=== PATIENT | male | born 1945 | race Caucasian/White ===

== ENCOUNTER 2016-03-23 10:42 | Day surgery (SDC) | payer BC, MEDICARE ==
[2016-03-17 11:38] VITALS: BMI 24.3
[~2016-03-23 10:42] MED LIST: LACTATED RINGERS 1,000 ML IV SCH
[2016-03-23 11:26] VITALS: RESP 16; TEMP 97.9
[2016-03-23] MEDS: CYCLOPENTOLATE 1% OPHTH SOLN 2 ML BTL OP ONE ×3 (11:30→11:42)
[2016-03-23] MEDS: FLURBIPROFEN 0.03% OPHTH DROPS 2.5 ML BTL OP ONE ×3 (11:32→11:44)
[2016-03-23] MEDS: PHENYLEPHRINE 10% OPHTH DROPS 5 ML BTL OP ONE ×2 (11:34→11:48)
[2016-03-23] MEDS ORDERED: LIDOCAINE 1% 20 ML VIAL (10MG/ML) FOR IV START INTRADERMA ONE (11:49)
[2016-03-23] MEDS ORDERED: hydrALAZINE HCL 20 MG/ML 1 ML VIAL IVP ONE (11:54)
[2016-03-23] MEDS ORDERED: PROPOFOL 10 MG/ML 20 ML VIAL IV ONE (12:17)
[2016-03-23] MEDS ORDERED: LIDOCAINE 1% INJ 10MG/ML (20 ML MDV) ONE (12:17)
[2016-03-23] MEDS ORDERED: fentaNYL (PF) 50 MCG/ML 2 ML AMP ONE (12:17)
[2016-03-23] MEDS ORDERED: HYALURONATE SODIUM INTRAOCULAR 1 EACH SYRINGE (10MG/ML) INTRAOCULA ONE (12:30)
[2016-03-23] MEDS ORDERED: BALANCED SALT IRRIG SOLN COMB2 15 ML IRRIG.SOLN INTRAOCULA ONE (12:30)
[2016-03-23] MEDS ORDERED: EPINEPHrine (PF) 0.5 ML in BALANCED SALT IRRIG SOLN COMB2 500 ML IRRIGATION ONE (12:31)
--- NOTE | 2016-03-23 12:37 | P.OP ---
Date of Procedure: 03/23/16 Procedure(s) Performed: PREOPERATIVE DIAGNOSIS: Cataract, left eye. POSTOPERATIVE DIAGNOSIS: Cataract, left eye. OPERATION: Phacoemulsification cataract, left eye. DESCRIPTION OF PROCEDURE: The patient was taken to the preoperative holding area. Intravenous Propofol was given so as to bring about adequate sedation. The following mixture was given for local anesthesia: 5 mL of 2% lidocaine, 5 mL of 0.75% Marcaine, and 1 mL of Wydase. Approximately 4 mL was injected in the retrobulbar space of the surgical eye. Additional 1 mL was then directed to the temporal area of the surgical eye. This was performed to allow adequate neurological block of the facial muscles. The patient was revived and then taken into the operative room. The patient was prepped and draped in the usual sterile manner for the operative eye. A lid speculum was put into position. The conjunctiva was resected back from the limbus in the 12 o'clock position. Bleeding was controlled with electrocautery. A #69 blade was then used and a half-thickness scleral incision approximately 1-mm posterior to the limbus was made on bare sclera. This was shelved in the clear cornea using a crescent knife. Next a 15-degree blade was used to make a stab incision at the 3 o' clock position at the corneolimbal interface. Keratome blade was then used and the superior wound was extended into the anterior chamber. Viscoelastic was injected into the anterior chamber and to maintain its form. Next, a cystotome was used and a continuous anterior capsulotomy was made without difficulty. Hydrodissection using a blunt cannula and BSS was performed. Phaco probe was then employed and a groove extending from 12 to 6 o'clock in the lens was created. A Gino wand was used through the stab incision so as to perform a divide and conquer technique. Next an irrigation aspiration probe was utilized and any residual cortex was removed from the eye. Again, viscoelastic was injected into the anterior chamber. An Mehrdad posterior chamber lens implant was placed in the cartridge and injected into the anterior chamber without difficulty. The SinOdotechey hook was utilized to spin the lens into position and this was again performed without any difficulty. The irrigation and aspiration probe was again employed and any residual viscoelastic was removed from the eye. Then BSS was injected into the limbal stab incision and the anterior chamber re-inflated. The conjunctiva was reapproximated using electrocautery. One drop of 0.25% Timoptic was placed over the corneal along with TobraDex ophthalmic ointment. Two sterile patches and a Dejesus eye shield were taped into position. The patient was transported to the recovery room in stable condition. Pathology: none sent Condition: stable Disposition: same day
[2016-03-23 13:06] VITALS: BP 144/76; PULSE 58
[2016-03-23] MEDS ORDERED: BUPIVACAINE (PF) 0.75% 5 ML, LIDOCAINE 4% (PF) 5 ML, HYALURONIDASE, HUMAN RECOMB 150 UNIT MISCELLANE ONE ×3 (23:00)
[2016-03-23] MEDS ORDERED: GENTAMICIN/PREDNISOL AC OPHTH OINT 3.5GM OPHTHALMIC ONE (23:00)
[2016-03-23] MEDS ORDERED: TIMOLOL 0.5% OPHTH SOLN (PF) 0.2 ML DROPERETTE OP ONE (23:00)
== END 2016-03-23 13:29 | disposition home or self-care (01) ==
LOC: OR 10:42
PROVIDERS: ATTEND Ophthalmology
DX: H25.013 Cortical age-related cataract, bilateral (principal); Z88.5 Allergy status to narcotic agent; I25.2 Old myocardial infarction; I10 Essential (primary) hypertension; Z86.73 Personal history of transient ischemic attack (TIA), and cerebral infarction without residual deficits; Z79.82 Long term (current) use of aspirin; Z79.891 Long term (current) use of opiate analgesic; Z79.899 Other long term (current) drug therapy
CPT/HCPCS: 66984; V2632; J2001 ×2; J3470; J0360; J0171; J3010; J2704; 99152; 99153

== ENCOUNTER 2016-05-11 11:11 | Day surgery (SDC) | payer MEDICARE ==
[2016-05-10 09:25] VITALS: BMI 23.0
[~2016-05-11 11:11] MED LIST changes: +LIDOCAINE 1% 20 ML VIAL (10MG/ML) FOR IV START INTRADERMA PRN
[2016-05-11] MEDS ORDERED: LACTATED RINGERS 1,000 ML IV ONE (12:44)
[2016-05-11 12:51] VITALS: RESP 18; TEMP 98
[2016-05-11] MEDS: PHENYLEPHRINE 10% OPHTH DROPS 5 ML BTL OP ONE ×3 (12:52→13:04)
[2016-05-11] MEDS: CYCLOPENTOLATE 1% OPHTH SOLN 2 ML BTL OP ONE ×3 (12:54→13:06)
[2016-05-11] MEDS: FLURBIPROFEN 0.03% OPHTH DROPS 2.5 ML BTL OP ONE ×3 (12:56→13:08)
[2016-05-11] MEDS ORDERED: PROPOFOL 10 MG/ML 20 ML VIAL IV ONE (14:00)
[2016-05-11] MEDS ORDERED: EPINEPHrine (PF) 0.5 ML in BALANCED SALT IRRIG SOLN COMB2 500 ML IRRIGATION ONE (14:03)
[2016-05-11] MEDS ORDERED: BALANCED SALT IRRIG SOLN COMB2 15 ML IRRIG.SOLN IRRIGATION ONE (14:08)
[2016-05-11] MEDS ORDERED: HYALURONATE SODIUM INTRAOCULAR 1 EACH SYRINGE (10MG/ML) INTRAOCULA ONE (14:09)
--- NOTE | 2016-05-11 14:27 | P.OP ---
Date of Procedure: 05/11/16 Procedure(s) Performed: PREOPERATIVE DIAGNOSIS: Cataract, right eye. POSTOPERATIVE DIAGNOSIS: Cataract, right eye. OPERATION: Phacoemulsification cataract, right eye. DESCRIPTION OF PROCEDURE: The patient was taken to the preoperative holding area. Intravenous Propofol was given so as to bring about adequate sedation. The following mixture was given for local anesthesia: 5 mL of 2% lidocaine, 5 mL of 0.75% Marcaine, and 1 mL of Wydase. Approximately 4 mL was injected in the retrobulbar space of the surgical eye. Additional 1 mL was then directed to the temporal area of the surgical eye. This was performed to allow adequate neurological block of the facial muscles. The patient was revived and then taken into the operative room. The patient was prepped and draped in the usual sterile manner for the operative eye. A lid speculum was put into position. The conjunctiva was resected back from the limbus in the 12 o'clock position. Bleeding was controlled with electrocautery. A #69 blade was then used and a half-thickness scleral incision approximately 1-mm posterior to the limbus was made on bare sclera. This was shelved in the clear cornea using a crescent knife. Next a 15-degree blade was used to make a stab incision at the 3 o' clock position at the corneolimbal interface. Keratome blade was then used and the superior wound was extended into the anterior chamber. Viscoelastic was injected into the anterior chamber and to maintain its form. Next, a cystotome was used and a continuous anterior capsulotomy was made without difficulty. Hydrodissection using a blunt cannula and BSS was performed. Phaco probe was then employed and a groove extending from 12 to 6 o'clock in the lens was created. A Gino wand was used through the stab incision so as to perform a divide and conquer technique. Next an irrigation aspiration probe was utilized and any residual cortex was removed from the eye. Again, viscoelastic was injected into the anterior chamber. An Mehrdad posterior chamber lens implant was placed in the cartridge and injected into the anterior chamber without difficulty. The SinGuocool.comey hook was utilized to spin the lens into position and this was again performed without any difficulty. The irrigation and aspiration probe was again employed and any residual viscoelastic was removed from the eye. Then BSS was injected into the limbal stab incision and the anterior chamber re-inflated. The conjunctiva was reapproximated using electrocautery. One drop of 0.25% Timoptic was placed over the corneal along with TobraDex ophthalmic ointment. Two sterile patches and a Dejesus eye shield were taped into position. The patient was transported to the recovery room in stable condition. Pathology: none sent Condition: stable Disposition: same day
[2016-05-11 14:56] VITALS: BP 157/84; PULSE 57
[2016-05-11] MEDS ORDERED: TIMOLOL 0.5% OPHTH SOLN (PF) 0.2 ML DROPERETTE OP ONE (23:00)
[2016-05-11] MEDS ORDERED: BUPIVACAINE (PF) 0.75% 5 ML, LIDOCAINE 4% (PF) 5 ML, HYALURONIDASE, HUMAN RECOMB 150 UNIT MISCELLANE ONE ×3 (23:00)
[2016-05-11] MEDS ORDERED: GENTAMICIN/PREDNISOL AC OPHTH OINT 3.5GM OPHTHALMIC ONE (23:00)
== END 2016-05-11 15:03 | disposition home or self-care (01) ==
LOC: OR 11:11
PROVIDERS: ATTEND Ophthalmology
DX: H26.9 Unspecified cataract (principal); Z86.73 Personal history of transient ischemic attack (TIA), and cerebral infarction without residual deficits; Z87.891 Personal history of nicotine dependence; Z79.82 Long term (current) use of aspirin; Z79.891 Long term (current) use of opiate analgesic; Z88.5 Allergy status to narcotic agent
CPT/HCPCS: 66984; V2632; J2001; J3470; J0171; J2704

== ENCOUNTER → 2016-09-24 | Outpatient (CLI) | payer MEDICARE ==
--- NOTE | 2016-09-24 08:59 | CT ---
EXAMINATION TYPE: CT lumbar spine wo con DATE OF EXAM: 09/24/2016 8:25 AM COMPARISON: NONE HISTORY: Low back pain CT DLP: 595.60 mGycm Automated exposure control for dose reduction was used. Unenhanced CT of the lumbar spine was performed. Bone and soft tissue window settings are submitted as well as coronal and sagittal reconstructions. L1-L2: Normal disc space height. No disc herniation protrusion or central stenosis. No facet joint arthropathy. No evidence for foraminal encroachment. L2-L3: Broad-based disc bulge is seen although intervertebral disc spaces maintained. This creates mi ld bilateral neural foraminal stenosis. No disc herniation protrusion or central stenosis. No facet joint arthropathy. L3-L4: There is a broad-based disc bulge, ligamentum flavum buckling, and facet arthropathy creating moderate spinal canal stenosis an mild bilateral neural foraminal narrowing. L4-L5: There is a right lateral disc herniation superimposed upon a broad-based disc bulge creating m oderate right neural foraminal narrowing and mild left neural foraminal narrowing. Additionally ligam entum flavum hypertrophy and facet arthropathy contribute to mild central canal stenosis at this leve l. Intervertebral disc space narrowing is noted. L5-S1: Broad-based disc bulge is seen as well as intervertebral disc space narrowing without signific ant spinal canal stenosis or neural foraminal narrowing. Punctate 2 mm left lower pole nonobstructing renal calculus is incidentally noted. IMPRESSION: 1. Right lateral disc herniation creating moderate right neural foraminal narrowing, mild left neural foraminal narrowing, and mild central canal stenosis at L4-L5. 2. Broad-based disc bulge, ligamentum flavum hypertrophy, and facet arthropathy at L3-L4 creating mod erate spinal canal stenosis and mild bilateral neural foraminal narrowing. 3. Multilevel degenerative disc disease. 4. Incidentally noted punctate 2 mm nonobstructing left lower pole renal calculus.
== END | disposition home or self-care (01) ==
LOC: RADCTMAIN 08:00
PROVIDERS: ATTEND Physical Medicine & Rehabilitation
DX: M48.06 Spinal stenosis, lumbar region (principal); M99.73 Connective tissue and disc stenosis of intervertebral foramina of lumbar region; M51.26 Other intervertebral disc displacement, lumbar region; M51.36 Other intervertebral disc degeneration, lumbar region; M24.28 Disorder of ligament, vertebrae
CPT/HCPCS: 72131

== ENCOUNTER 2017-05-02 09:32 | Day surgery (SDC) | payer MEDICARE ==
[2017-04-28 13:53] VITALS: BMI 23.7
[~2017-05-02 09:32] MED LIST changes: -LIDOCAINE 1% 20 ML VIAL (10MG/ML) FOR IV START INTRADERMA PRN
[2017-05-02 10:06] VITALS: RESP 16; TEMP 97.1
[2017-05-02] MEDS ORDERED: PROPOFOL 10 MG/ML 20 ML VIAL IV ONE (11:39)
[2017-05-02] MEDS ORDERED: LIDOCAINE 1% INJ 10MG/ML (20 ML MDV) ONE (11:39)
[2017-05-02] MEDS ORDERED: GLYCOPYRROLATE 0.2 MG/ML 2 ML VIAL ONE (11:39)
[2017-05-02 12:16] VITALS: BP 109/65; PULSE 73
--- NOTE | 2017-05-02 12:18 | P.PCN ---
Date of Procedure: 05/02/17 Procedure(s) Performed: Procedure: 1. Esophagogastroduodenoscopy and biopsies. 2. Total colonoscopy. Preoperative diagnosis: Epigastric pain and screening for colon neoplasia. Postoperative diagnosis: 1. Mild antral gastritis. 2. Normal colon. 3. Multiple biopsies obtained from the duodenum, antrum and esophagus. Preparation: HalfLytely prep. Sedation: Was provided by anesthesia. Brief clinical history: The patient is a 71-year-old male who is scheduled for this evaluation because of epigastric pain as well as for screening for colon neoplasia. Procedure: With the patient on his left lateral decubitus position and after informed consent and adequate sedation, I passed the Olympus-GIF 160 video upper endoscope through the cricopharyngeus down the esophagus. The endoscope was then passed into the stomach which was insufflated with air and inspected in detail including the retroflex view in the cardia. There was some minimal mottling and erythema in the antrum but no ulcers or erosions. Pyloric channel, duodenal bulb, post bulbar area and descending duodenum appeared within normal limits. I obtained biopsies from the duodenum, antrum and esophagus then the endoscope was withdrawn and I proceeded with the colonoscopy. Perianal area did not show any fissures or fistulas. There were no masses felt on digital rectal examination. The Olympus CFQ 160L video colonoscope was then inserted in the rectum in the usual fashion and advanced to the cecum. The preparation was less than ideal and there was thick fecal material that would lock the suction channel of the endoscope. Where visualized, the colon appeared healthy with no edema, erythema, friability, ulceration, exudation or spontaneous bleeding. No polyps or tumors were seen or any obvious diverticular disease or other pathology. The patient tolerated the procedure well. The patient tolerated the procedure well. Plan: The patient was reassured. He will follow up with you as planned and I recommended repeat exam in 5 years because of his less than ideal preparation.
== END 2017-05-02 12:42 | disposition home or self-care (01) ==
LOC: ORWHC2ENDO 09:32
DX: Z12.11 Encounter for screening for malignant neoplasm of colon (principal); K29.50 Unspecified chronic gastritis without bleeding; K22.70 Barrett's esophagus without dysplasia; I25.10 Atherosclerotic heart disease of native coronary artery without angina pectoris; I10 Essential (primary) hypertension; E78.5 Hyperlipidemia, unspecified; Z86.73 Personal history of transient ischemic attack (TIA), and cerebral infarction without residual deficits; Z88.5 Allergy status to narcotic agent; I25.2 Old myocardial infarction; Z79.82 Long term (current) use of aspirin; Z79.891 Long term (current) use of opiate analgesic; Z79.899 Other long term (current) drug therapy
CPT/HCPCS: 88305; 43239; J2001; J2704; G0121; 45378

== ENCOUNTER 2017-05-12 00:52 | Emergency (ER) | payer MEDICARE ==
[2017-05-12 01:01] LABS: Glucose,Whole Blood 124 mg/dL (75-99)
--- NOTE | 2017-05-12 01:21 | ED ---
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 The patient was picked up by the police because he was driving the wrong direction on the highway. The patient does not recall a lot of the details of this. He states that the last thing that he recalls was leaving a bowling alley. He states he does not drink, smoke, or do any drugs. He declines doing any of these activities tonight. He denies any physical complaints. States he does not have any recollection of this occurring to them previously. There is no family here at bedside giving further history. The patient denies any headache, fevers , chills, chest pain, shortness of breath, abdominal pain, or any urinary symptoms. - Related Data Home Medications Medication Instructions Recorded Confirmed Aspirin 325 mg PO HS 03/17/16 05/02/17 oxyCODONE-APAP 10-325MG [Percocet 1 tab PO Q6HR PRN 03/17/16 05/02/17 10-325 mg] Buprenorphine [Butrans 15 MCG/HR] 1 each TRANSDERM WE 04/28/17 05/02/17 Lisinopril 40 mg PO QAM 04/28/17 04/28/17 Pravastatin Sodium [Pravachol] 20 mg PO HS 04/28/17 04/28/17 amLODIPine BESYLATE [Norvasc] 5 mg PO QAM 04/28/17 04/28/17 Allergies Allergy/AdvReac Type Severity Reaction Status Date / Time meperidine [From Demerol] Allergy Swelling Verified 05/12/17 01:07 Review of Systems ROS Statement: Those systems with pertinent positive or pertinent negative responses have been documented in the HPI. ROS Other: All systems not noted in ROS Statement are negative. Past Medical History Past Medical History: CVA/TIA, Hyperlipidemia, Hypertension, Myocardial Infarction ([place]) Additional Past Medical History / Comment(s): ANEMIA, STATES CHRONIC NECK/BACK PAIN, stroke years ago-residual droopy left eye Last Myocardial Infarction Date:: 1972 History of Any Multi-Drug Resistant Organisms: None Reported Past Surgical History: Back Surgery, Heart Catheterization, Orthopedic Surgery Additional Past Surgical History / Comment(s): ORIF FOOT, cataract [place] Past Anesthesia/Blood Transfusion Reactions: No Reported Reaction Past Psychological History: No Psychological Hx Reported Smoking Status: Former smoker - Past Family History Sister(s) Family Medical History: Cancer General Exam - General Exam Comments Initial Comments: Constitutional: Awake alert Appears comfortable Head: Normocephalic atraumatic Eyes: no conjunctival injection No scleral icterus EOMI Neck: No JVD Supple Heart: Regular rate rhythm normal S1-S2 no murmurs Lungs: Clear to auscultation bilaterally No wheezing No rales Abdomen: Soft nondistended nontender Extremities: Non edematous DP pulses intact Radial pulses intact Neuro: Alert and oriented to person and place however does not know the year or the president, does have some left-sided facial drooping which is baseline per the patient. 5 out of 5 strength in upper and lower extremities bilaterally, no ataxia with finger-nose and heel to hadley testing, the patient does have episodes of repetitive speech. He also has difficulty remembering people that he just saw a few minutes ago. Psych: Appropriate mood and affect Limitations: no limitations Course Vital Signs 05/12/17 05/12/17 01:02 01:51 Temperature 97 F L Pulse Rate 89 91 Respiratory 16 18 Rate Blood Pressure 196/109 158/85 O2 Sat by Pulse 100 98 Oximetry - Reevaluation(s) Reevaluation #1: 05/12/17 01:20 EKG showing normal sinus rhythm with a rate of 89. No abnormal ST segment changes or T-wave inversions. QTC is 435. Other intervals normal. No ectopy. Medical Decision Making - Medical Decision Making Is a 71-year-old male who presents emergency department for an episode of confusion. The patient had no focal neurologic deficits except for those that were baseline for him. Computed tomography scan of the head was unremarkable. Labwork was obtained that did show a microcytic anemia however no other acute abnormalities. The anemia and likely is chronic and not what has caused his symptoms tonight. The did end up showing up and stated that he is currently being treated for dementia which is a new diagnosis for him. He has been having waxing and waning episodes of confusion similar to these over the last few weeks that she states that she feels that tonight's episode was likely related to his dementia. The patient was able to remember me when I came into the room and thus transient global amnesia is less likely. At this time there is no acute abnormalities that are requiring the patient to stay in the hospital. I advised them to follow up closely with her primary doctor or return for any worsening symptoms. All questions were answered. - Lab Data Result diagrams: 05/12/17 01:00 05/12/17 01:00 Lab Results 05/12/17 05/12/17 05/12/17 Range/Units 00:59 01:00 01:00 WBC 9.6 (3.8-10.6) k/uL RBC 4.08 L (4.30-5.90) m/uL Hgb 9.4 L (13.0-17.5) gm/dL Hct 31.6 L (39.0-53.0) % MCV 77.5 L (80.0-100.0) fL MCH 23.1 L (25.0-35.0) pg MCHC 29.8 L (31.0-37.0) g/dL RDW 15.7 H (11.5-15.5) % Plt Count 276 (150-450) k/uL Neutrophils % 73 % Lymphocytes % 17 % Monocytes % 5 % Eosinophils % 3 % Basophils % 1 % Neutrophils # 7.0 (1.3-7.7) k/uL Lymphocytes # 1.6 (1.0-4.8) k/uL Monocytes # 0.5 (0-1.0) k/uL Eosinophils # 0.3 (0-0.7) k/uL Basophils # 0.1 (0-0.2) k/uL Hypochromasia Marked Microcytosis Slight PT (9.0-12.0) sec INR (<1.2) APTT (22.0-30.0) sec Sodium 143 (137-145) mmol/L Potassium 3.8 (3.5-5.1) mmol/L Chloride 105 (98-107) mmol/L Carbon Dioxide 26 (22-30) mmol/L Anion Gap 12 mmol/L BUN 13 (9-20) mg/dL Creatinine 0.80 (0.66-1.25) mg/dL Est GFR (CKD-EPI)AfAm >90 (>60 ml/min/1.73 sqM) Est GFR (CKD-EPI)NonAf 90 (>60 ml/min/1.73 sqM) Glucose 121 H (74-99) mg/dL POC Glucose (mg/dL) 124 H (75-99) mg/dL POC Glu Police Officer ID Josseline Ulrich Calcium 9.5 (8.4-10.2) mg/dL Magnesium 2.1 (1.6-2.3) mg/dL Total Bilirubin 0.2 (0.2-1.3) mg/dL AST 24 (17-59) U/L ALT 34 (21-72) U/L Alkaline Phosphatase 91 (38-126) U/L CK-MB (CK-2) (0.0-2.4) ng/mL Troponin I (0.000-0.034) ng/mL Total Protein 7.4 (6.3-8.2) g/dL Albumin 4.5 (3.5-5.0) g/dL Urine Color Urine Appearance (Clear) Urine pH (5.0-8.0) Ur Specific [place] (1.001-1.035) Urine Protein (Negative) Urine Glucose (UA) (Negative) Urine Ketones (Negative) Urine Blood (Negative) Urine Nitrite (Negative) Urine Bilirubin (Negative) Urine Urobilinogen (<2.0) mg/dL Ur Leukocyte Esterase (Negative) 05/12/17 05/12/17 05/12/17 Range/Units 01:00 01:00 02:00 WBC (3.8-10.6) k/uL RBC (4.30-5.90) m/uL Hgb (13.0-17.5) gm/dL Hct (39.0-53.0) % MCV (80.0-100.0) fL MCH (25.0-35.0) pg MCHC (31.0-37.0) g/dL RDW (11.5-15.5) % Plt Count (150-450) k/uL Neutrophils % % Lymphocytes % % Monocytes % % Eosinophils % % Basophils % % Neutrophils # (1.3-7.7) k/uL Lymphocytes # (1.0-4.8) k/uL Monocytes # (0-1.0) k/uL Eosinophils # (0-0.7) k/uL Basophils # (0-0.2) k/uL Hypochromasia Microcytosis PT 10.3 (9.0-12.0) sec INR 1.0 (<1.2) APTT 21.2 L (22.0-30.0) sec Sodium (137-145) mmol/L Potassium (3.5-5.1) mmol/L Chloride (98-107) mmol/L Carbon Dioxide (22-30) mmol/L Anion Gap mmol/L BUN (9-20) mg/dL Creatinine (0.66-1.25) mg/dL Est GFR (CKD-EPI)AfAm (>60 ml/min/1.73 sqM) Est GFR (CKD-EPI)NonAf (>60 ml/min/1.73 sqM) Glucose (74-99) mg/dL POC Glucose (mg/dL) (75-99) mg/dL POC Glu Police Officer ID Calcium (8.4-10.2) mg/dL Magnesium (1.6-2.3) mg/dL Total Bilirubin (0.2-1.3) mg/dL AST (17-59) U/L ALT (21-72) U/L Alkaline Phosphatase (38-126) U/L CK-MB (CK-2) 3.1 H* (0.0-2.4) ng/mL Troponin I <0.012 (0.000-0.034) ng/mL Total Protein (6.3-8.2) g/dL Albumin (3.5-5.0) g/dL Urine Color Light Yellow Urine Appearance Clear (Clear) Urine pH 6.5 (5.0-8.0) Ur Specific [place] 1.009 (1.001-1.035) Urine Protein Negative (Negative) Urine Glucose (UA) Negative (Negative) Urine Ketones 1+ H (Negative) Urine Blood Negative (Negative) Urine Nitrite Negative (Negative) Urine Bilirubin Negative (Negative) Urine Urobilinogen <2.0 (<2.0) mg/dL Ur Leukocyte Esterase Negative (Negative) Disposition Clinical Impression: Confusion, Dementia Disposition: HOME SELF-CARE Condition: Stable Instructions: Dementia (ED) Referrals: Terrance Fowler MD [Primary Care Provider] - 1-2 days
[2017-05-12 01:27] LABS: Basophils # (A) 0.1 k/uL (0-0.2); Basophils % (A) 1 %; Eosinophils # (A) 0.3 k/uL (0-0.7); Eosinophils % (A) 3 %; HCT 31.6 % (39.0-53.0); HGB 9.4 gm/dL (13.0-17.5); Hypochromasia Marked; Lymphocytes # (A) 1.6 k/uL (1.0-4.8); Lymphocytes % (A) 17 %; MCH 23.1 pg (25.0-35.0); MCHC 29.8 g/dL (31.0-37.0); MCV 77.5 fL (80.0-100.0); Mean Platelet Volume 7.8; Microcytosis Slight; Monocytes # (A) 0.5 k/uL (0-1.0); Monocytes % (A) 5 %; Neutrophils % (A) 73 %; Platelet Count 276 k/uL (150-450); RBC 4.08 m/uL (4.30-5.90); RDW 15.7 % (11.5-15.5); WBC 9.6 k/uL (3.8-10.6)
--- NOTE | 2017-05-12 01:30 | CT ---
EXAMINATION TYPE: CT brain wo con DATE OF EXAM: 05/12/2017 COMPARISON: NONE HISTORY: No prev. on synapse. pt. presented to ER with confusion. Hx. of previous TIA/CVA CT DLP: 1030.60 mGycm Automated exposure control for dose reduction was used. FINDINGS: There is mild cerebral cortical atrophy. There is no mass effect nor midline shift. There is no sign of intracranial hemorrhage. There is dense metal artifact on the anterior aspect of the left globe. T he calvarium is intact. There is no evidence of a cortical infarct. IMPRESSION: CEREBRAL ATROPHY. NO ACUTE INTRACRANIAL ABNORMALITY.
--- NOTE | 2017-05-12 01:31 | XR ---
EXAMINATION TYPE: XR chest 2V DATE OF EXAM: 05/12/2017 COMPARISON: NONE HISTORY: Confusion TECHNIQUE: Frontal and lateral views of the chest are obtained. FINDINGS: Heart and mediastinum are normal. Lungs are clear of infiltrate. Diaphragm is normal. Bony thorax is intact. There are chest leads. IMPRESSION: No active cardiopulmonary disease.
[2017-05-12 01:36] LABS: Prothrombin Time 10.3 sec (9.0-12.0)
[2017-05-12 01:50] LABS: ALT 34 U/L (21-72); AST 24 U/L (17-59); Albumin 4.5 g/dL (3.5-5.0); Alkaline Phosphatase 91 U/L (38-126); Anion Gap 12 mmol/L; Blood Urea Nitrogen 13 mg/dL (9-20); Calcium 9.5 mg/dL (8.4-10.2); Carbon Dioxide 26 mmol/L (22-30); Chloride 105 mmol/L (98-107); Glucose 121 mg/dL (74-99); Magnesium 2.1 mg/dL (1.6-2.3); Potassium 3.8 mmol/L (3.5-5.1); Sodium 143 mmol/L (137-145); Total Bilirubin 0.2 mg/dL (0.2-1.3); Total Protein 7.4 g/dL (6.3-8.2)
[2017-05-12 01:52] VITALS: RESP 18
[2017-05-12 02:07] LABS: Troponin I <0.012 ng/mL (0.000-0.034)
[2017-05-12 02:12] LABS: Partial Thromboplastin Time 21.2 sec (22.0-30.0)
[2017-05-12 02:15] LABS: Creatine Kinase MB 3.1 ng/mL (0.0-2.4)
[2017-05-12 02:19] LABS: Appearance,Urine Clear (Clear); Bilirubin,Urine Negative (Negative); Blood,Urine Negative (Negative); Color,Urine Light Yellow; Glucose,Urine (UA) Negative (Negative); Ketones,Urine 1+ (Negative); Leukocyte Esterase,Urine Negative (Negative); Nitrite,Urine Negative (Negative); PH, Urine 6.5 (5.0-8.0); Protein,Urine Negative (Negative); Specific Gravity,Urine 1.009 (1.001-1.035); Urobilinogen,Urine <2.0 mg/dL (<2.0)
[2017-05-12 02:30] LABS: Amphetamine Screen,Urine Not Detected (NotDetected); Barbiturate Screen,Urine Not Detected (NotDetected); Benzodiazepines Screen,Urine Not Detected (NotDetected); Cocaine Screen,Urine Not Detected (NotDetected); Methadone Screen, Urine Not Detected (NotDetected); Opiate Screen,Urine Not Detected (NotDetected); Oxycodone Screen, Urine Not Detected (NotDetected); Phencyclidine Screen,Urine Not Detected (NotDetected); Tricyclic Antidepressant,Urine Not Detected (NotDetected); Urn Cannabinoid Scrn Not Detected (NotDetected)
[2017-05-12 02:44] VITALS: BP 141/75; PULSE 92; TEMP 97.5
== END 2017-05-12 02:41 | disposition home or self-care (01) ==
LOC: EC 00:52
DX: F03.90 Unspecified dementia, unspecified severity, without behavioral disturbance, psychotic disturbance, mood disturbance, and anxiety (principal); D50.9 Iron deficiency anemia, unspecified; R29.810 Facial weakness; E78.5 Hyperlipidemia, unspecified; I10 Essential (primary) hypertension; G89.29 Other chronic pain; I25.2 Old myocardial infarction; Z87.891 Personal history of nicotine dependence; Z79.82 Long term (current) use of aspirin; Z79.899 Other long term (current) drug therapy; Z88.8 Allergy status to other drugs, medicaments and biological substances
CPT/HCPCS: 36415; 70450; 71046; 80053; 80306; 81003; 82553; 83735; 84484; 85025; 85610; 85730; 93005; 99285

== ENCOUNTER → 2017-06-18 | Outpatient (CLI) | payer MEDICARE ==
[2017-06-18 09:00] LABS: Anisocytosis Slight; Basophils # (A) 0.1 k/uL (0-0.2); Basophils % (A) 1 %; Eosinophils # (A) 0.5 k/uL (0-0.7); Eosinophils % (A) 6 %; HCT 31.1 % (39.0-53.0); HGB 9.2 gm/dL (13.0-17.5); Hypochromasia Marked; Lymphocytes # (A) 2.2 k/uL (1.0-4.8); Lymphocytes % (A) 27 %; MCH 23.1 pg (25.0-35.0); MCHC 29.6 g/dL (31.0-37.0); MCV 77.9 fL (80.0-100.0); Mean Platelet Volume 7.1; Microcytosis Slight; Monocytes # (A) 0.4 k/uL (0-1.0); Monocytes % (A) 5 %; Neutrophils # (A) 4.8 k/uL (1.3-7.7); Neutrophils % (A) 58 %; Platelet Count 262 k/uL (150-450); RDW 16.1 % (11.5-15.5); WBC 8.2 k/uL (3.8-10.6)
[2017-06-18 09:29] LABS: ALT 25 U/L (21-72); AST 26 U/L (17-59); Alkaline Phosphatase 78 U/L (38-126); Blood Urea Nitrogen 16 mg/dL (9-20); Cholesterol 209 mg/dL (<200); HDL Cholesterol 47 mg/dL (40-60); LDH 501 U/L (313-618); LDL Cholesterol,Calculated 133 mg/dL (0-99); Triglycerides 144 mg/dL (<150)
[2017-06-18 17:30] LABS: Folate, Serum 21.8 ng/mL
== END | disposition home or self-care (01) ==
LOC: LABWHC1 08:20
PROVIDERS: ATTEND Psychiatry & Neurology Neurology
DX: R41.2 Retrograde amnesia (principal)
CPT/HCPCS: 36415; 80061; 82565; 82607; 82746; 83615; 84075; 84443; 84450; 84460; 84520; 85025

== ENCOUNTER → 2017-08-02 | Outpatient (CLI) | payer MEDICARE ==
[2017-07-29 09:26] VITALS: BMI 23.8
[2017-08-02 13:52] VITALS: BP 157/76; PULSE 69; RESP 18
--- NOTE | 2017-08-02 14:14 | P.HPIM ---
History of Present Illness H&P Date: 08/02/17 Chief Complaint: low back and leg pain This is a 71-year-old patient referred by Dr. Fowler for chronic pain in low back with radiation to both legs with numbness/tingling, R > L. Patient has been taking medications from primary care physician including Percocet medications with some relief. Patient denies adverse drug effects from medications. Patient also denies new-onset weakness, bowel/bladder incontinence , or any other signs or symptoms of cauda equina syndrome. There are no signs of acute intoxication, and no indications of medication diversion or overuse. Patient notes that pain worsens significantly with standing, driving, lifting and improves with sitting, rest, lying down, and medication. Patient has used several types of medications for pain, including NSAIDS, OPIOIDS (Percocet), TRAMADOL. Patient HAS had surgery (previous laminectomy). Patient HAS had injections previously performed by Dr. Barfiedl which did not help him. Patient HAS NOT had physical therapy recently. In addition to above, 13-point review of systems is also negative for chest pain , shortness of breath, changes in vision, changes in hearing, new onset weakness , abdominal pain, diarrhea, extreme fatigue, malaise, fever, skin changes, homicidal or suicidal ideation, or bowel or bladder incontinence. 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 Last Myocardial Infarction Date:: 1972 History of Any Multi-Drug Resistant Organisms: None Reported Past Surgical History: Back Surgery, Heart Catheterization, Orthopedic Surgery Additional Past Surgical History / Comment(s): LEFT ORIF FOOT, cataract WARREN, METAL IN BACK Past Anesthesia/Blood Transfusion Reactions: No Reported Reaction Past Psychological History: No Psychological Hx Reported Smoking Status: Former smoker Past Alcohol Use History: Rare Additional Past Alcohol Use History / Comment(s): SMOKED LESS THAN 1/2PPD IN 20' S Past Drug Use History: None Reported - Past Family History Sister(s) Family Medical History: Cancer Medications and Allergies Home Medications Medication Instructions Recorded Confirmed Type Aspirin 325 mg PO HS 03/17/16 08/02/17 History oxyCODONE-APAP 10-325MG [Percocet 1 tab PO Q8H PRN 03/17/16 08/02/17 History 10-325 mg] Lisinopril 40 mg PO QAM 04/28/17 08/02/17 History Pravastatin Sodium [Pravachol] 20 mg PO HS 04/28/17 08/02/17 History amLODIPine BESYLATE [Norvasc] 5 mg PO QAM 04/28/17 08/02/17 History Allergies Allergy/AdvReac Type Severity Reaction Status Date / Time meperidine [From Demerol] Allergy Swelling Verified 08/02/17 13:40 buprenorphine [From Butrans] AdvReac Rash/Hives Verified 08/02/17 13:40 Physical Exam Vitals: Vital Signs Pulse Resp BP 08/02/17 13:41 69 18 157/76 Intake and Output 08/01/17 08/02/17 08/02/17 22:59 06:59 14:59 Other: Weight 80.739 kg Results Comments: Computed tomography scan of lumbar spine demonstrates a right lateral disc herniation creating moderate right neural foraminal narrowing with mild left neural foraminal narrowing and mild central canal stenosis the L4-L5 level. There is a broad-based disc bulge, ligamentum flavum hypertrophy, and facet arthropathy at L3-L4 creating moderate spinal canal stenosis and mild bilateral neural foraminal narrowing. There is also multilevel degenerative disc disease. Assessment and Plan (1) Lumbar postlaminectomy syndrome Current Visit: Yes Status: Chronic Code(s): M96.1 - POSTLAMINECTOMY SYNDROME , NOT ELSEWHERE CLASSIFIED SNOMED Code(s): 459328767 (2) Chronic pain syndrome Current Visit: Yes Status: Chronic Code(s): G89.4 - CHRONIC PAIN SYNDROME SNOMED Code(s): 019871360 (3) Lumbar disc herniation Current Visit: Yes Status: Acute Code(s): M51.26 - OTHER INTERVERTEBRAL DISC DISPLACEMENT, LUMBAR REGION SNOMED Code(s): 041967573 (4) Lumbar spinal stenosis Current Visit: Yes Status: Acute Code(s): M48.061 - SPINAL STENOSIS, LUMBAR REGION WITHOUT NEUROGENIC LOIVIA SNOMED Code(s): 11171319 Plan: 1. Explanation: Opioid and psychological risk scores were reviewed. Diagnoses , prognoses, and multiple treatment options including but not limited to physical therapy, interventional therapies, adjuvant medical therapies, narcotic medication therapies, and surgery were discussed with the patient and all questions were answered to the patient's satisfaction. 2. Opioid agreement: no opioids prescribed today 3. Counseling: The patient was counseled extensively on SMOKING CESSATION, BODY MASS INDEX, EXERCISE. Specifically, the patient was instructed regarding the importance of smoking cessation, weight control, and exercise in the context of both chronic pain and overall health. 4. Procedures: caudal BENSON 5. Consultations: none 6. Investigations: none 7. Medications: none prescribed 8. Morphine equivalents per day prescribed: zero 9. Disposition: f/u for procedure as scheduled PQRS measures: 1-Patient's medications are documented in the chart. 2-Tobacco use is positive, counseling given 3-Patient has not had a pneumococcal vaccine. 4-Advanced care planning discussed, patient unable to give. 5-Opioid contract NOT signed with the patient. 6-Pain positive, follow-up visit or procedure scheduled 7-Patient's blood pressure measured and documented, and patient will follow up with the primary care due to hypertension. 8-Patient's weight was measured, and body mass index ABOVE the normal limits, and counseling was done. Patient instructed to follow up with PCP. 9-Patient WAS NOT identified as an unhealthy alcohol user. Time with Patient: Greater than 30
== END | disposition home or self-care (01) ==
LOC: PNWHC3 13:32
PROVIDERS: ATTEND Anesthesiology
DX: G89.4 Chronic pain syndrome (principal); M48.061 Spinal stenosis, lumbar region without neurogenic claudication; M51.26 Other intervertebral disc displacement, lumbar region; M96.1 Postlaminectomy syndrome, not elsewhere classified; E78.5 Hyperlipidemia, unspecified; I10 Essential (primary) hypertension; Z72.0 Tobacco use; Z88.5 Allergy status to narcotic agent; Z88.8 Allergy status to other drugs, medicaments and biological substances; Z79.82 Long term (current) use of aspirin; Z79.891 Long term (current) use of opiate analgesic; Z79.899 Other long term (current) drug therapy
CPT/HCPCS: 99211

== ENCOUNTER 2017-08-22 07:55 | Day surgery (SDC) | payer MEDICARE ==
[2017-08-17 10:53] VITALS: BMI 24.7
[2017-08-22] MEDS ORDERED: LACTATED RINGERS 1,000 ML IV ONE ×2 (09:27→10:18)
[2017-08-22 09:41] VITALS: TEMP 98.1
[2017-08-22] MEDS ORDERED: LIDOCAINE 1% 20 ML VIAL (10MG/ML) FOR IV START INTRADERMA ONE (09:45)
--- NOTE | 2017-08-22 10:15 | P.PCN ---
Date of Procedure: 08/22/17 Procedure(s) Performed: PREOPERATIVE DIAGNOSIS:1- Lumbar post laminectomy syndrome. 2-lumbar spinal stenosis POSTOPERATIVE DIAGNOSIS:1- Lumbar post laminectomy syndrome. 2-lumbar spinal stenosis PROCEDURE: 1. Caudal epidural steroid injection under fluoroscopic guidance. 2. Caudal epidurogra ANESTHESIA: Local with 1% lidocaine; 5ml for subcutaneous infiltrations and IV versed 1 mg ,and fentanyl 50 mcg EBL: None. PROCEDURE INDICATION: The patient with neuropathic pain radiating distally returns for caudal epidural steroid injection. PROCEDURE DESCRIPTION: The patient was seen and identified in the preoperative area. Risks, benefits, complications, and alternatives were discussed with the patient. The patient agreed to proceed with the procedure and signed the consent. IV was started, and vital signs were stable. Patient was taken to the OR and time out was completed. The patient was placed in the prone position on procedure table and a pillow was placed under the abdomen to reduce lumbar lordosis. The lumbosacral area was prepped and draped in the usual sterile fashion. Critical pause was taken. Vital signs were closely monitored during the procedure. Using lateral fluoroscopy the anterior-posterior plates of the sacrum were identified and the skin and deeper tissues corresponding into sacrococcygeal ligament were anesthetized using approximately 3 mL of 1% lidocaine. Then under fluoroscopy, a 3-1/2-inch 20-gauge Tuohy epidural needle was guided through the sacrococcygeal ligament, and into the epidural space. After negative aspiration , a 2 mL of omnipaque-180 contrast dye was injected with excellent epidurogram. Again after negative aspiration for CSF, blood, and with no paresthesias , Depo-Medrol 40 mg, 2ml of 1% preservative free Lidocaine with 6 ml of preservative free normal saline(total of 9 ml)solution was injected with washout of epidurogram. Needle was withdrawn intact. Skin was cleansed, and bandage was applied. COMPLICATIONS: None DISPOSITION / PLANS: The patient was placed in a supine position and transferred to the recovery area in a stable condition for observation and was discharged from the recovery room after meeting discharge criteria. Home discharge instructions given to the patient by the staff. The patient was reexamined prior to discharge. The patient will schedule a follow up in the clinic in 2-4 weeks.
[2017-08-22 10:25] VITALS: RESP 18
[2017-08-22 10:46] VITALS: BP 163/80; PULSE 68
[2017-08-22] MEDS ORDERED: LACTATED RINGERS 1,000 ML IV SCH (11:30)
--- NOTE | 2017-08-22 11:39 | FL ---
EXAMINATION TYPE: FL guided pain mgmt statistic DATE OF EXAM: 08/22/2017 FLUOROSCOPY Fluoroscopy time of 3 seconds was used during caudal epidural injection. 2 image/s document/s the pr virgilio.
== END 2017-08-22 11:05 | disposition home or self-care (01) ==
LOC: ORPAIN 07:55
PROVIDERS: ATTEND Specialist
DX: G89.4 Chronic pain syndrome (principal); M96.1 Postlaminectomy syndrome, not elsewhere classified; M51.16 Intervertebral disc disorders with radiculopathy, lumbar region; M48.061 Spinal stenosis, lumbar region without neurogenic claudication; E78.5 Hyperlipidemia, unspecified; I10 Essential (primary) hypertension; I25.2 Old myocardial infarction; Z88.5 Allergy status to narcotic agent; Z79.82 Long term (current) use of aspirin; Z79.899 Other long term (current) drug therapy; Z87.891 Personal history of nicotine dependence; Z86.73 Personal history of transient ischemic attack (TIA), and cerebral infarction without residual deficits; Z80.9 Family history of malignant neoplasm, unspecified
CPT/HCPCS: 62323; J2250; J1030; J3010; Q9966

== ENCOUNTER 2017-09-12 06:34 | Day surgery (SDC) | payer MEDICARE ==
[2017-09-07 09:21] VITALS: BMI 23.4
[2017-09-12] MEDS ORDERED: LACTATED RINGERS 1,000 ML IV ONE (07:22)
[2017-09-12 07:38] VITALS: RESP 18; TEMP 97.7
[2017-09-12] MEDS ORDERED: LIDOCAINE 1% 20 ML VIAL (10MG/ML) FOR IV START INTRADERMA ONE (07:39)
--- NOTE | 2017-09-12 08:26 | P.PCN ---
Date of Procedure: 09/12/17 Surgeon: Facundo Busby Pathology: none sent Condition: stable Disposition: PACU Description of Procedure: PREOPERATIVE DIAGNOSIS:1- Lumbar post laminectomy syndrome. 2-lumbar spinal stenosis POSTOPERATIVE DIAGNOSIS:1- Lumbar post laminectomy syndrome. 2-lumbar spinal stenosis PROCEDURE: 1. Caudal epidural steroid injection under fluoroscopic guidance. 2. Caudal epidurogra ANESTHESIA: Local with 1% lidocaine; 5ml for subcutaneous infiltrations and IV versed 1 mg ,and fentanyl 50 mcg EBL: None. PROCEDURE INDICATION: The patient with neuropathic pain radiating distally returns for caudal epidural steroid injection. PROCEDURE DESCRIPTION: The patient was seen and identified in the preoperative area. Risks, benefits, complications, and alternatives were discussed with the patient. The patient agreed to proceed with the procedure and signed the consent. IV was started, and vital signs were stable. Patient was taken to the OR and time out was completed. The patient was placed in the prone position on procedure table and a pillow was placed under the abdomen to reduce lumbar lordosis. The lumbosacral area was prepped and draped in the usual sterile fashion. Critical pause was taken. Vital signs were closely monitored during the procedure. Using lateral fluoroscopy the anterior-posterior plates of the sacrum were identified and the skin and deeper tissues corresponding into sacrococcygeal ligament were anesthetized using approximately 3 mL of 1% lidocaine. Then under fluoroscopy, a 3-1/2-inch 20-gauge Tuohy epidural needle was guided through the sacrococcygeal ligament, and into the epidural space. After negative aspiration , a 2 mL of omnipaque-180 contrast dye was injected with excellent epidurogram. Again after negative aspiration for CSF, blood, and with no paresthesias , Kenalog 40 mg, 2ml of preservative free Ropivacaine 0.5% with 7 ml of preservative free normal saline(total of 10 ml)solution was injected with washout of epidurogram. Needle was withdrawn intact. Skin was cleansed, and bandage was applied. COMPLICATIONS: None DISPOSITION / PLANS: The patient was placed in a supine position and transferred to the recovery area in a stable condition for observation and was discharged from the recovery room after meeting discharge criteria. Home discharge instructions given to the patient by the staff. The patient was reexamined prior to discharge. The patient will schedule a follow up in the clinic in 2-4 weeks.
[2017-09-12] MEDS ORDERED: IV FLUID CONTINUATION 1,000 ML IV ONE (08:34)
[2017-09-12 08:56] VITALS: BP 124/73; PULSE 67
--- NOTE | 2017-09-12 11:42 | FL ---
EXAMINATION TYPE: FL guided pain mgmt statistic DATE OF EXAM: 09/12/2017 FLUOROSCOPY Fluoroscopy time of 3 seconds was used during caudal epidural steroid injection. 2 image/s document/ s the procedure.
== END 2017-09-12 09:16 | disposition home or self-care (01) ==
LOC: ORPAIN 06:34
PROVIDERS: ATTEND Anesthesiology
DX: M96.1 Postlaminectomy syndrome, not elsewhere classified (principal); M48.061 Spinal stenosis, lumbar region without neurogenic claudication; G57.90 Unspecified mononeuropathy of unspecified lower limb; I25.10 Atherosclerotic heart disease of native coronary artery without angina pectoris; Z88.5 Allergy status to narcotic agent
CPT/HCPCS: 62323; J2250; J3301; J3010; Q9966

== ENCOUNTER → 2017-10-17 | Outpatient (CLI) | payer MEDICARE ==
--- NOTE | 2017-10-17 08:32 | CT ---
EXAMINATION TYPE: CT cervical spine wo con DATE OF EXAM: 10/17/2017 COMPARISON: None HISTORY: 71-year-old male Cervical spondylosis, increasing neck pain TECHNIQUE: Contiguous axial scanning of the cervical spine without IV contrast. Coronal and sagittal reconstructions performed. CT DLP: 387.6 mGycm Automated exposure control for dose reduction was used. FINDINGS: No craniocervical junction abnormality, predental space widening, or prevertebral soft tissue swellin g. Mild to moderate degenerative disc disease especially in the mid to lower cervical spine with mild di sc height loss and disc osteophyte complex formation especially towards the right at C4-C5 and C5-C6. There is slight levoconvex curvature of the cervical spine the alignment is maintained. No acute frac ture of the cervical spine. There is corresponding hypertrophic facet arthropathy in the lower cervical spine and uncovertebral j oint arthropathy, right greater than left. Assessment of the spinal canal from C5-C6 and below is limited due to artifact from the patient's hamlet ulders. At C2-C3, no significant spinal canal and neural foraminal stenosis. At C3-C4, there is some lobulated disc osteophyte complex formation with right greater than left unco vertebral joint degenerative change. Changes cause mild right neuroforaminal stenosis without signifi cant spinal canal stenosis. At C4-C5, bilateral uncovertebral joint and facet arthropathy with moderate to severe bilateral neuro foraminal stenosis. No significant spinal canal stenosis. At C5-C6, bilateral uncovertebral joint arthropathy contribute to moderate to severe bilateral neural foraminal stenosis. No significant spinal canal stenosis. At C6/C7, facet and uncovertebral joint degenerative change contributes to moderate left neuroforamin al stenosis. Assessment of the spinal canal is limited due to artifacts. At C7-T1, left greater than right hypertrophic facet arthropathy without significant neural foraminal stenosis. Assessment of the spinal canal is limited due to artifacts. Biapical pleural-parenchymal scarring is noted. IMPRESSION: 1. MILD TO MODERATE DEGENERATIVE DISC DISEASE MID TO LOWER CERVICAL SPINE WITH HYPERTROPHIC UNCOVERTE BRAL JOINT AND FACET ARTHROPATHY. 2. CHANGES CONTRIBUTE TO MODERATE TO SEVERE BILATERAL NEUROFORAMINAL STENOSIS AT C4-C5 AND C5-C6 AND MODERATE ON THE LEFT AT C6-C7.
== END | disposition home or self-care (01) ==
LOC: RADCTMAIN 07:32
PROVIDERS: ATTEND Specialist
DX: M99.71 Connective tissue and disc stenosis of intervertebral foramina of cervical region (principal); M50.321 Other cervical disc degeneration at C4-C5 level; M46.92 Unspecified inflammatory spondylopathy, cervical region
CPT/HCPCS: 72125

== ENCOUNTER → 2017-11-09 | Outpatient (CLI) | payer MEDICARE ==
[2017-11-09 11:57] VITALS: BP 137/83; PULSE 72; RESP 18
--- NOTE | 2017-11-09 12:50 | P.PAINPG ---
Subjective Progress Note Date: 11/09/17 This is a follow-up visit for this 72 years old male with history of chronic low back pain and neck pain, last visit we ordered a computed tomography scan of the cervical spine and patient here today for follow-up visit to discuss the results of the computed tomography scan of the cervical spine, it showed that patient had C3 4 foraminal stenosis, and multilevel degenerative disc disease and also cervical facet arthropathy, patient continued to have severe neck pain , he denies any motor or sensory deficit, he continued to use Lyrica 75 mg twice a day and Percocet 10/325 and he is getting prescription refills from his primary care, he denies any side effect of the medication Objective - Vital Signs Vital signs: Vital Signs Temp Pulse 72 11/09/17 11:53 Resp 18 11/09/17 11:53 BP 137/83 11/09/17 11:53 Pulse Ox Intake & Output 11/08/17 11/09/17 11/09/17 18:59 06:59 18:59 Weight 73.936 kg - Exam Physical Examinations : 1-Constitutiona : Cooperative , not in acute distress . 2-HEENT : nech ; supple , no Lymphadenopathy , normal thyroid size . eyes : no ptosis , no icterus , no photophobia . ENT : normal of hearing , normal oropharynx , no Thrush . 3- Respiratory : Chest clear to auscultations Bilaterally , no wheezing , no Rhonchi . 4- Cardiovascular : regular rate and rhythem , S1 , S2 , no S3 , no S4. 5- Gastrointestinal : abdomen soft no tenderness , bowel sounds , no organomegally . 6- Genitourinary : Defferred . 7- neurologic : Cranial nerve II to XII intact , no focal neurological deffecit . 8-psychatric : alert , oriented X 3 , appropriate affect , intact judgment and insight . 9-Lymphatic : no Lymphadenopathy . 10- musculoskeltal : Cervical Spine motor stregnth in the deltoid and biceps, normal right side , normal Left side motor stregnth biceps and the wrist extensors normal right side ,normal left side . motor stregnth in the triceps muscle . normal Right side , normal Left side deep tendon reflexes normal at the biceps , normal at Brachioradialis , normal at triceps. positive cervical facet loading test . 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 secondary to cervical spondylosis with cervical facet arthropathy without myelopathy, and cervical foraminal stenosis he will be scheduled to have diagnostic medial branch block cervical area C4-5/C5 6/C6 7 She had a good result he will be scheduled for radiofrequency ablation, patient should continue his current medication is given prescription refills from his primary care Time with Patient: Less than 30 PQRS Measure Charge Sheet Measure #130: Documentation of Current Meds in Medical Chart: Patient's medications documented in chart Measure #226: Tobacco Use: Screen & Cessation Intervention: Pt not a tobacco user Measure #111: Pneumonia Vaccination: Pneumococcal vaccine NOT administered or previously given Measure #47: Advance Care Plan: Advance care planning discussed & documented, pt chose/unable to give Measure #412: Opioid Treatment Agreement: No documentation of signed opioid treatment agreement Measure #408: Opioid Therapy Follow-up Evaluation: Patient had NO f/u eval minimum every 3 months during opioid therapy Measure #317: Preventitive Care & Scrn High Bld Press & F/U: Normal blood pressure, f/u not required Measure #128: Body Mass Index (BMI) Screening & Follow-up: BMI documented within normal parameters Measure #131: Pain Assessment & Follow-up: Pain positive & plan documented, Follow-up scheduled Measure #431: Unhealthy Alcohol Use Preventative Care & Scrn: Patient not identified as an unhealthy alcohol user PQRS Narrative: Smoking Status Never smoker Do You Want the Pneumonia No Vaccine AT THIS TIME? Blood Pressure 137/83 Pain Intensity [Neck] 9 Scale Used Numeric (1 - 10) Hx Alcohol Use (MH) No Home Medications: Ambulatory Orders Aspirin 325 mg PO HS 03/17/16 oxyCODONE-APAP 10-325MG [Percocet 10-325 mg] 1 tab PO Q8H PRN 03/17/16 Lisinopril 40 mg PO QAM 04/28/17 Pravastatin Sodium [Pravachol] 20 mg PO HS 04/28/17 amLODIPine BESYLATE [Norvasc] 5 mg PO QAM 04/28/17 Multivitamins, Thera [Multivitamin (formulary)] 1 tab PO DAILY 08/17/17 Ferrous Sulfate [Feosol] 325 mg PO TID 09/07/17 Isosorbide Mononitrate [Isosorbide Mononitrate ER] 30 mg PO QAM 09/07/17 Memantine HCl [Namenda] 1 tab PO BID 10/10/17 Pregabalin [Lyrica] 75 mg PO BID 11/09/17 Controlled Substance Measures - Controlled Substance Measures Is patient prescribed a controlled substance at discharge?: No When asked, does pt state using other controlled substances?: No If prescribed controlled substance>3 days was MAPS reviewed?: No If Rx opioid, was Start Talking consent form obtained?: No If opioid is for acute pain is fill amount 7 days or less?: No Was information provided regarding opioid addiction?: No
== END | disposition home or self-care (01) ==
LOC: PNWHC3 11:17
PROVIDERS: ATTEND Specialist
DX: G89.29 Other chronic pain (principal); M54.5 Low back pain; M99.71 Connective tissue and disc stenosis of intervertebral foramina of cervical region; M50.30 Other cervical disc degeneration, unspecified cervical region; M47.812 Spondylosis without myelopathy or radiculopathy, cervical region; M46.82 Other specified inflammatory spondylopathies, cervical region; Z79.891 Long term (current) use of opiate analgesic
CPT/HCPCS: 99211

== ENCOUNTER 2017-11-14 06:06 | Day surgery (SDC) | payer MEDICARE ==
[2017-11-10 10:43] VITALS: BMI 22.1
[2017-11-14 06:32] VITALS: RESP 18; TEMP 97.9
[2017-11-14] MEDS ORDERED: LACTATED RINGERS 1,000 ML IV ONE (06:33)
[2017-11-14] MEDS ORDERED: LIDOCAINE 1% 20 ML VIAL (10MG/ML) FOR IV START INTRADERMA ONE (06:33)
--- NOTE | 2017-11-14 08:10 | P.PCN ---
Date of Procedure: 11/14/17 Preoperative Diagnosis: Cervical spondylosis without myelopathy Postoperative Diagnosis: Same as above Procedure(s) Performed: Left cervical medial branch block under fluoroscopic guidance for the medial branches C3 4, C5, C6, and C7 Anesthesia: other (Local with IV conscious sedation with 2 mg of Versed only) Surgeon: Facundo Busby Pathology: none sent Condition: stable Disposition: PACU Description of Procedure: The patient was seen in the preop holding area consent was obtained. He has pain on the left side of his neck with radiation to the upper arm. The patient was brought into the procedure room and placed in the supine position. Skin was prepped with ChloraPrep and draped in a sterile manner. Lidocaine 1% was used to numb the skin up at the target points that were chosen as follows: For the C4, C5, C6 levels the target points were at the center of the trapezoid shaped cervical articular pillars of C4, C5, and C6 vertebra. After the C7 level in the target point was at the superior aspect of the superior articular process of C7. I used 25-gauge 3-1/2 inch Quincke spinal needles for this procedure and after contacting bone at the target points mentioned above I injected 0.5 ML of a solution made up of 3 MLS of ropivacaine 0.5% +10 mg of Decadron. Patient tolerated procedure well.
[2017-11-14] MEDS ORDERED: IV FLUID CONTINUATION 750 ML IV ONE (08:14)
--- NOTE | 2017-11-14 08:22 | FL ---
EXAMINATION TYPE: FL guided pain mgmt statistic DATE OF EXAM: 11/14/2017 CLINICAL HISTORY: Neck pain. TECHNIQUE: Fluoroscopy. COMPARISON: CT cervical spine October 17, 2017. FINDINGS: Fluoroscopic guidance was provided during pain relief procedure performed by Dr. Busby. A total of 8 seconds of fluoroscopic time was utilized during the procedure and single spot fluorosc opic image is acquired. Single image acquired shows needle localization at C4-C5 level posterior juan ments. IMPRESSION: As Above.
[2017-11-14 08:40] VITALS: BP 156/90; PULSE 76
== END 2017-11-14 08:44 | disposition home or self-care (01) ==
LOC: ORPAIN 06:06
PROVIDERS: ATTEND Anesthesiology
DX: G89.29 Other chronic pain (principal); M47.812 Spondylosis without myelopathy or radiculopathy, cervical region; M50.30 Other cervical disc degeneration, unspecified cervical region; M48.02 Spinal stenosis, cervical region; Z79.891 Long term (current) use of opiate analgesic; Z79.899 Other long term (current) drug therapy
CPT/HCPCS: 64490; 64491; 64492; J2250; J1100; 99152

== ENCOUNTER 2017-11-28 06:19 | Day surgery (SDC) | payer MEDICARE ==
[2017-11-23 10:44] VITALS: BMI 22.8
[2017-11-28] MEDS ORDERED: LIDOCAINE 1% 20 ML VIAL (10MG/ML) FOR IV START INTRADERMA ONE (07:20)
[2017-11-28 07:27] VITALS: RESP 16; TEMP 97.9
--- NOTE | 2017-11-28 07:55 | P.PCN ---
Date of Procedure: 11/28/17 Pathology: none sent Condition: stable Disposition: PACU Description of Procedure: Preoperative Diagnosis: Cervical spondylosis without myelopathy Postoperative Diagnosis: Same as above Procedure(s) Performed: Left cervical medial branch block under fluoroscopic guidance for the medial branches C 4, C5, C6, and C7 Anesthesia: other (Local with IV conscious sedation with 2 mg of Versed only) Surgeon: Facundo Busby Pathology: none sent Condition: stable Disposition: PACU Description of Procedure: The patient was seen in the preop holding area consent was obtained. He has pain on the left side of his neck with radiation to the upper arm. The patient had more than 50% of pain relief for 2 days after the first diagnostic injection. The patient was brought into the procedure room and placed in the supine position. Skin was prepped with ChloraPrep and draped in a sterile manner. Lidocaine 1% was used to numb the skin up at the target points that were chosen as follows: For the C4, C5, C6 levels the target points were at the center of the trapezoid shaped cervical articular pillars of C4, C5, and C6 vertebra. After the C7 level in the target point was at the superior aspect of the superior articular process of C7. I used 25-gauge 3-1/2 inch Quincke spinal needles for this procedure and after contacting bone at the target points mentioned above I injected 0.5 ML of a solution made up of 3 MLS of ropivacaine 0.5% +10 mg of Decadron. Patient tolerated procedure well.
[2017-11-28] MEDS ORDERED: IV FLUID CONTINUATION 1,000 ML IV ONE ×2 (08:03)
--- NOTE | 2017-11-28 08:17 | FL ---
EXAMINATION TYPE: FL guided pain mgmt statistic DATE OF EXAM: 11/28/2017 COMPARISON: NONE HISTORY: Back pain. TECHNIQUE: Fluoroscopy. FINDINGS/IMPRESSION: Fluoroscopic guidance was provided during procedure performed by Dr. Geller a total of seconds of fluoroscopic time was utilized during the procedure and 3 spot images was acquire d demonstrating localization of the lumbar spine.
[2017-11-28 08:33] VITALS: BP 149/86; PULSE 84
== END 2017-11-28 08:47 | disposition home or self-care (01) ==
LOC: ORPAIN 06:19
PROVIDERS: ATTEND Anesthesiology
DX: M47.812 Spondylosis without myelopathy or radiculopathy, cervical region (principal); Z88.5 Allergy status to narcotic agent
CPT/HCPCS: 64490; 64491; 64492; J2250; J1100; G0463; 99152; 99211

== ENCOUNTER → 2017-12-21 | Outpatient (CLI) | payer MEDICARE ==
--- NOTE | 2017-12-21 12:23 | P.PN ---
Subjective Progress Note Date: 12/21/17 Principal diagnosis: Cervical spondylosis without myelopathy This is a 71-year-old gentleman with history of neck pain due to cervical spondylosis without myelopathy. The patient had very good results after the last left cervical medial branch block for levels C4, C5, C6, and C7. He denies any weakness in the upper extremities or any bowel or bladder dysfunction. Objective - Vital Signs Vital signs: Vital Signs Temp Pulse 95 12/21/17 11:55 Resp 18 12/21/17 11:55 BP 130/80 12/21/17 11:55 Pulse Ox 97 12/21/17 11:55 Intake & Output 12/20/17 12/21/17 12/21/17 18:59 06:59 18:59 Weight 79.379 kg - Constitutional General appearance: Present: average body habitus, cooperative - EENT Eyes: Present: PERRLA - Respiratory Respiratory: bilateral: CTA - Cardiovascular Rhythm: regular - Neurologic Neurologic: Present: CNII-XII intact - Musculoskeletal Musculoskeletal Comment(s): He has mild tenderness in the left side of his cervical spine in the paravertebral musculature. - Psychiatric Psychiatric: Present: A&O x's 3, appropriate affect, intact judgment & insight Assessment and Plan Plan: We will plan on doing left cervical medial branch RFA for levels C4, C5, C6, and C7 under fluoroscopic guidance. The procedure was explained to the patient and his and their questions were answered to their satisfaction.
[2017-12-21 13:12] VITALS: BP 130/80; PULSE 95; RESP 18
== END | disposition home or self-care (01) ==
LOC: PNWHC3 11:30
PROVIDERS: ATTEND Anesthesiology
DX: M47.812 Spondylosis without myelopathy or radiculopathy, cervical region (principal)
CPT/HCPCS: 99211

== ENCOUNTER → 2018-02-01 | Outpatient (CLI) | payer MEDICARE ==
[2018-02-01 12:40] VITALS: BP 166/93; PULSE 80; RESP 16
--- NOTE | 2018-02-01 12:57 | P.PAINPG ---
Subjective Progress Note Date: 02/01/18 Principal diagnosis: Myofascial pain syndrome This pleasant 72-year-old man with a history of neck pain who has recently undergone cervical radio frequency ablation. He does continue to complain of pain in his neck however this spot now is lower in his neck. He is quite busy with his primary care physician to discuss medication management. He denies any new cervical radicular complaints. He denies any fevers or chills. Objective - Vital Signs Vital signs: Vital Signs Temp Pulse 80 02/01/18 12:31 Resp 16 02/01/18 12:31 BP 166/93 02/01/18 12:31 Pulse Ox 98 02/01/18 12:31 Intake & Output 01/31/18 02/01/18 02/01/18 18:59 06:59 18:59 Weight 79.379 kg - Exam General: The patient is alert and oriented. Patient is not sedated Patient answers all question appropriately. Cardiac: Heart is regular in rate and rhythm Respiratory: Clear to auscultation. No audible wheezes. Abdomen: Soft nontender nondistended. Musculoskeletal: Strength is normal bilaterally. Sensation is normal bilaterally. Straight leg raise is negative bilaterally. He is tender to palpation over his rhomboid muscles and trapezius muscles bilaterally. Neurological: Reflexes are preserved and symmetric bilaterally. Assessment and Plan (1) Myofascial pain syndrome Current Visit: Yes Status: Acute Code(s): M79.18 - MYALGIA, OTHER SITE SNOMED Code(s): 747354315 Plan: Plan of Care 1. Medications: Patient will continue to get his medications through his primary care physician 2. Interventions: We will schedule him for trigger point injections in the lateral rhomboids and bilateral trapezius muscles 3. Referrals: None 4. Testing: None 5. Follow-up: Trigger point injections PQRS Measure Charge Sheet Measure #130: Documentation of Current Meds in Medical Chart: Patient not eligible for medications to be documented Measure #226: Tobacco Use: Screen & Cessation Intervention: Pt not a tobacco user Measure #111: Pneumonia Vaccination: Pneumococcal vaccine NOT administered or previously given Measure #47: Advance Care Plan: Advance care planning discussed & documented, pt chose/unable to give Measure #412: Opioid Treatment Agreement: No documentation of signed opioid treatment agreement Measure #408: Opioid Therapy Follow-up Evaluation: Patient had NO f/u eval minimum every 3 months during opioid therapy Measure #317: Preventitive Care & Scrn High Bld Press & F/U: Normal blood pressure, f/u not required Measure #128: Body Mass Index (BMI) Screening & Follow-up: BMI documented within normal parameters Measure #131: Pain Assessment & Follow-up: Pain positive & plan documented Measure #431: Unhealthy Alcohol Use Preventative Care & Scrn: Patient not identified as an unhealthy alcohol user PQRS Narrative: Smoking Status Former smoker Do You Want the Pneumonia No Vaccine AT THIS TIME? Blood Pressure 166/93 Pain Intensity [Bilateral 9 Posterior Neck] Scale Used Numeric (1 - 10) Hx Alcohol Use (MH) No Home Medications: Ambulatory Orders Aspirin 325 mg PO HS 03/17/16 oxyCODONE-APAP 10-325MG [Percocet 10-325 mg] 1 tab PO Q8H PRN 03/17/16 Lisinopril 40 mg PO QAM 04/28/17 Pravastatin Sodium [Pravachol] 20 mg PO HS 04/28/17 amLODIPine BESYLATE [Norvasc] 5 mg PO QAM 04/28/17 Multivitamins, Thera [Multivitamin (formulary)] 1 tab PO DAILY 08/17/17 Ferrous Sulfate [Feosol] 325 mg PO TID 09/07/17 Isosorbide Mononitrate [Isosorbide Mononitrate ER] 30 mg PO QAM 09/07/17 Memantine HCl [Namenda] 1 tab PO BID 10/10/17 Lidocaine 5% Patch [Lidoderm] 1 patch TOPICAL DAILY 02/01/18 Controlled Substance Measures - Controlled Substance Measures Is patient prescribed a controlled substance at discharge?: No
== END ==
LOC: PNWHC3 11:10
PROVIDERS: ATTEND Pain Medicine Pain Medicine
DX: M79.18 Myalgia, other site (principal); Z79.82 Long term (current) use of aspirin; Z79.899 Other long term (current) drug therapy; Z79.891 Long term (current) use of opiate analgesic
CPT/HCPCS: 99211

== ENCOUNTER 2018-02-27 07:15 | Day surgery (SDC) | payer MEDICARE ==
[2018-02-23 10:29] VITALS: BMI 23.8
[2018-02-27 08:00] VITALS: RESP 16; TEMP 97.7
[2018-02-27] MEDS ORDERED: LACTATED RINGERS 1,000 ML IV ONE (08:11)
[2018-02-27] MEDS ORDERED: LIDOCAINE 1% 20 ML VIAL (10MG/ML) FOR IV START INTRADERMA ONE (08:11)
[2018-02-27] MEDS ORDERED: IV FLUID CONTINUATION 1,000 ML IV ONE (08:44)
[2018-02-27 08:57] VITALS: BP 151/88; PULSE 75
[2018-02-27] MEDS ORDERED: SODIUM CHLORIDE 0.9% 500 ML 500 ML IV SCH (09:00)
--- NOTE | 2018-02-27 11:11 | P.PCN ---
Date of Procedure: 02/27/18 Procedure(s) Performed: Procedure= trigger point injections cervical area total of 4 trigger points injected right side trapezius muscle, right side rhomboid muscle Left side trapezius muscle, left side rhomboid muscle. Preoperative diagnosis= 1-myofascial pain syndrome cervical area. 2-cervical spondylosis. Postoperative diagnosis= same as preop diagnoses Complication = none Condition= stable Anesthesia= none Indication for the procedure= patient complaining of severe neck pain , examination was positive for severe multiple trigger points in the cervical area and he would be good candidate for trigger point injection . Description of the procedure= procedure risk and benefits discussed with the patient, including but not limited, risk of infection and bleeding, and ALLERGIC reaction to the medication and not complete pain relief and patient agreed with the preceding patient taken to the operating room, placed in sitting position or standard monitors applied to the patient then after induction of anesthesia back prepped with chlorhexidine 3 times , Then under strict sterile technique, each of the trigger point injected with 3 mg of the mixture of 11 ML of ropivacaine and 40 mg of Kenalog, total volume was 12 and and 3 mL injected at each trigger point after negative aspiration, and there was no paresthesia during the injection, I injected the right side trapezius muscle, right side rhomboid muscle ,and left side trapezius muscle, and left side rhomboid muscle, total of 4 trigger points injected patient tolerated the procedure well without any complications.
== END 2018-02-27 09:25 | disposition home or self-care (01) ==
LOC: ORPAIN 07:15
PROVIDERS: ATTEND Specialist
DX: M79.18 Myalgia, other site (principal); M47.812 Spondylosis without myelopathy or radiculopathy, cervical region; Z88.5 Allergy status to narcotic agent
CPT/HCPCS: 20553; J1030

== ENCOUNTER 2018-03-13 09:29 | Day surgery (SDC) | payer MEDICARE ==
[2018-03-10 09:33] VITALS: BMI 23.8
[~2018-03-13 09:29] MED LIST changes: -LACTATED RINGERS 1,000 ML IV SCH; +SODIUM CHLORIDE 0.9% 500 ML 500 ML IV SCH
[2018-03-13] MEDS ORDERED: LIDOCAINE 1% 20 ML VIAL (10MG/ML) FOR IV START INTRADERMA ONE (10:23)
[2018-03-13 10:34] VITALS: RESP 16; TEMP 98.4
[2018-03-13] MEDS ORDERED: LACTATED RINGERS 1,000 ML IV ONE (10:38)
--- NOTE | 2018-03-13 11:31 | P.PCN ---
Date of Procedure: 03/13/18 Procedure(s) Performed: Procedure= trigger point injections cervical area total of 4 trigger points injected right side trapezius muscle, right side rhomboid muscle Left side trapezius muscle, left side rhomboid muscle. Preoperative diagnosis= 1-myofascial pain syndrome cervical area. 2-cervical spondylosis. Postoperative diagnosis= same as preop diagnoses Complication = none Condition= stable Anesthesia= none Indication for the procedure= patient complaining of severe neck pain , examination was positive for severe multiple trigger points in the cervical area and he would be good candidate for trigger point injection . Description of the procedure= procedure risk and benefits discussed with the patient, including but not limited, risk of infection and bleeding, and ALLERGIC reaction to the medication and not complete pain relief and patient agreed with the preceding patient taken to the operating room, placed in sitting position or standard monitors applied to the patient then after induction of anesthesia back prepped with chlorhexidine 3 times , Then under strict sterile technique, each of the trigger point injected with 3 ml of the mixture of 11 ML of ropivacaine and 60 mg of Depo-Medrol, total volume was 12 and and 3 mL of the mixture ,injected at each trigger point after negative aspiration, and there was no paresthesia during the injection, I injected the right side trapezius muscle, right side rhomboid muscle ,and left side trapezius muscle, and left side rhomboid muscle, total of 4 trigger points injected,using 25 G needle , patient tolerated the procedure well without any complications. And he will follow up with the pain clinic in a few weeks.
[2018-03-13] MEDS ORDERED: IV FLUID CONTINUATION 800 ML IV ONE (11:34)
[2018-03-13 11:49] VITALS: BP 146/83; PULSE 78
== END 2018-03-13 12:04 | disposition home or self-care (01) ==
LOC: ORPAIN 09:29
PROVIDERS: ATTEND Specialist
DX: M79.18 Myalgia, other site (principal); M47.812 Spondylosis without myelopathy or radiculopathy, cervical region
CPT/HCPCS: 20552; J1030; 20553

== ENCOUNTER → 2018-04-03 | Outpatient (CLI) | payer MEDICARE ==
[2018-04-03 12:00] VITALS: BP 133/76; PULSE 79; RESP 16; TEMP 97.9
--- NOTE | 2018-04-03 12:19 | P.PN ---
Progress Note - Text Progress Note Date: 04/03/18 This is a 72-year-old patient with history of chronic pain in low back, and neck pain. Patient had left-sided radio frequency ablation at C3-C4, C4-C5, C5- C6. He's having some discomfort in the neck after the RFA and had a series of trigger point injections performed. Patient has been taking medications from primary care physician including Percocet medications with some relief. Patient denies adverse drug effects from medications. Patient also denies new- onset weakness, bowel/bladder incontinence, or any other signs or symptoms of cauda equina syndrome. There are no signs of acute intoxication, and no indications of medication diversion or overuse. In addition to above, 13-point review of systems is also negative for chest pain , shortness of breath, changes in vision, changes in hearing, new onset weakness , abdominal pain, diarrhea, extreme fatigue, malaise, fever, skin changes, homicidal or suicidal ideation, or bowel or bladder incontinence. 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 Last Myocardial Infarction Date:: 1972 History of Any Multi-Drug Resistant Organisms: None Reported Past Surgical History: Back Surgery, Heart Catheterization, Orthopedic Surgery Additional Past Surgical History / Comment(s): LEFT ORIF FOOT, cataract WARREN, METAL IN BACK Past Anesthesia/Blood Transfusion Reactions: No Reported Reaction Past Psychological History: No Psychological Hx Reported Smoking Status: Former smoker Past Alcohol Use History: Rare Additional Past Alcohol Use History / Comment(s): SMOKED LESS THAN 1/2PPD IN 20' S Past Drug Use History: None Reported - Past Family History Sister(s) Family Medical History: Cancer Medications and Allergies Home Medications Medication Instructions Recorded Confirmed Type Aspirin 325 mg PO HS 03/17/16 08/02/17 History oxyCODONE-APAP 10-325MG [Percocet 1 tab PO Q8H PRN 03/17/16 08/02/17 History 10-325 mg] Lisinopril 40 mg PO QAM 04/28/17 08/02/17 History Pravastatin Sodium [Pravachol] 20 mg PO HS 04/28/17 08/02/17 History amLODIPine BESYLATE [Norvasc] 5 mg PO QAM 04/28/17 08/02/17 History Allergies Allergy/AdvReac Type Severity Reaction Status Date / Time meperidine [From Demerol] Allergy Swelling Verified 08/02/17 13:40 buprenorphine [From Butrans] AdvReac Rash/Hives Verified 08/02/17 13:40 Imaging: Reviewed in EMR Assessment: 1. lumbar spondylosis without myelopathy 2. sacroiliitis 3. chronic pain syndrome 4. Cervical Spondylosis without myelopathy. Plan: 1. Explanation: Opioid and psychological risk scores were reviewed. Diagnoses , prognoses, and multiple treatment options including but not limited to physical therapy, interventional therapies, adjuvant medical therapies, narcotic medication therapies, and surgery were discussed with the patient and all questions were answered to the patient's satisfaction. 2. Opioid agreement: Patient has previously signed narcotic agreement, and was orally counseled to not overuse, abuse, divert, or cell medications, and to take them as prescribed by only 1 healthcare provider. The patient was also counseled to store opioid medications in a safe and preferably locked location. Patient was also counseled against driving while using narcotic medications and also to not use alcohol or any illicit or recreational drugs. The patient verbalized understanding that lack of compliance with any of the above and likely result in failure to renew narcotic prescriptions, possible discharge from the clinic, and possible legal ramifications thereafter if indicated. 3. Counseling: The patient was counseled extensively on SMOKING CESSATION, BODY MASS INDEX, EXERCISE. Specifically, the patient was instructed regarding the importance of smoking cessation, weight loss, and exercise in the context of both chronic pain and overall health. 4. Procedures: None. 5. Consultations: None 6. Investigations: None for now 7. Medications: From PCP. 8. Disposition: f/u for re-eval in 8-12 weeks PQRS measures: 1-Patient's medications are documented in the chart. 2-Tobacco use is positive, counseling given 3-Patient has not had a pneumococcal vaccine. 4-Advanced care planning discussed, patient unable to give. 5-Opioid contract NOT signed with the patient. 6-Pain positive, follow-up visit or procedure scheduled 7-Patient's blood pressure measured and documented, and patient will follow up with the primary care due to hypertension. 8-Patient's weight was measured, and body mass index ABOVE the normal limits, and counseling was done. Patient instructed to follow up with PCP. 9-Patient WAS NOT identified as an unhealthy alcohol user. Time with Patient: Greater than 30
== END ==
LOC: PNWHC3 11:31
PROVIDERS: ATTEND Anesthesiology
DX: G89.4 Chronic pain syndrome (principal); M54.5 Low back pain; M54.2 Cervicalgia; M47.816 Spondylosis without myelopathy or radiculopathy, lumbar region; M46.1 Sacroiliitis, not elsewhere classified; M47.812 Spondylosis without myelopathy or radiculopathy, cervical region; F17.200 Nicotine dependence, unspecified, uncomplicated; E78.5 Hyperlipidemia, unspecified; I10 Essential (primary) hypertension; I25.2 Old myocardial infarction; Z95.5 Presence of coronary angioplasty implant and graft; Z98.890 Other specified postprocedural states; Z79.82 Long term (current) use of aspirin; Z79.899 Other long term (current) drug therapy; Z88.5 Allergy status to narcotic agent; Z86.73 Personal history of transient ischemic attack (TIA), and cerebral infarction without residual deficits; Z79.891 Long term (current) use of opiate analgesic; Z71.6 Tobacco abuse counseling
CPT/HCPCS: 99211

== ENCOUNTER 2019-01-11 06:16 | Inpatient (IN) | payer MEDICARE ==
[2019-01-11] MEDS ORDERED: SODIUM CHLORIDE 0.9% 1,000 ML IV ONE (06:38)
[2019-01-11] MEDS: SODIUM CHLORIDE 0.9% 1,000 ML IV SCH ×2 (06:45→10:45)
--- NOTE | 2019-01-11 06:46 | ED ---
Altered Mental Status HPI - General Source: patient, family, EMS, RN notes reviewed, old records reviewed Mode of arrival: EMS Limitations: no limitations, altered mental status <Jeri Wharton - Last Filed: 01/11/19 08:45> <Lisa Morgan - Last Filed: 01/20/19 00:08> - General Chief Complaint: Altered Mental Status Stated Complaint: Altered Mental Status Time Seen by Provider: 01/11/19 06:26 - History of Present Illness Initial Comments: Patient is a 73-year-old male, with a history of dementia and previous strokes and heart disease. He presents today for concern for altered mental status, confusion for the past few days as well as a fall last night. Patient's reports that he was disoriented upon awakening earlier this morning, and was attempting to the bathroom. When he returned from using the restroom Patient slid down from the bed and fell. She does not know if he has had but lives that he fell onto his buttocks. He denies any pain at this time. He states that he has been having issues with his balance for the past few days. Patient states that he has no headache or any other complaints of pain. (Jeri Wharton) - Related Data Home Medications Medication Instructions Recorded Confirmed oxyCODONE-APAP 10-325MG [Percocet 1 tab PO Q6H PRN 03/17/16 01/11/19 10-325 mg] Pravastatin Sodium [Pravachol] 20 mg PO HS 04/28/17 01/11/19 amLODIPine BESYLATE [Norvasc] 5 mg PO QAM 04/28/17 01/11/19 Multivitamins, Thera [Multivitamin 1 tab PO DAILY 08/17/17 01/11/19 (formulary)] Ferrous Sulfate [Iron (65 MG 325 mg PO BID 09/07/17 01/11/19 Elemental)] Isosorbide Mononitrate [Isosorbide 30 mg PO QAM 09/07/17 01/11/19 Mononitrate ER] Memantine [Namenda] 10 mg PO BID 01/11/19 01/11/19 oxyCODONE ER [OxyCONTIN] 15 mg PO Q12HR 01/11/19 01/11/19 Previous Rx's Medication Instructions Recorded Cefuroxime Axetil [Ceftin] 500 mg PO BID 3 Days #6 tab 01/12/19 Cyanocobalamin [Vitamin B-12] 1,000 mcg PO DAILY #30 tablet 01/12/19 Allergies Allergy/AdvReac Type Severity Reaction Status Date / Time buprenorphine [From Butrans] Allergy Rash/Hives Verified 01/11/19 08:12 meperidine [From Demerol] Allergy Swelling Verified 01/11/19 08:12 Review of Systems ROS Other: All systems not noted in ROS Statement are negative. <Jeri Wharton - Last Filed: 01/11/19 08:45> ROS Other: All systems not noted in ROS Statement are negative. <Lisa Morgan - Last Filed: 01/20/19 00:08> ROS Statement: Those systems with pertinent positive or pertinent negative responses have been documented in the HPI. Past Medical History Past Medical History: CVA/TIA, Dementia, Hyperlipidemia, Hypertension, Myocardial Infarction (ID) Additional Past Medical History / Comment(s): ANEMIA, STATES CHRONIC NECK/BACK PAIN, stroke years ago-residual droopy left eye, "slight memory loss", dementia Last Myocardial Infarction Date:: 1972 History of Any Multi-Drug Resistant Organisms: None Reported Past Surgical History: Back Surgery, Heart Catheterization, Joint Replacement, Orthopedic Surgery Additional Past Surgical History / Comment(s): LEFT ORIF FOOT, cataract WARREN, METAL IN BACK, warren carpal tunnel, rt knee replacement Past Anesthesia/Blood Transfusion Reactions: No Reported Reaction Past Psychological History: Depression Smoking Status: Former smoker Past Alcohol Use History: None Reported Past Drug Use History: None Reported - Past Family History Sister(s) Family Medical History: Cancer Additional Family Medical History / Comment(s): melanoma <Jeri Wharton - Last Filed: 01/11/19 08:45> General Exam Limitations: no limitations, altered mental status General appearance: alert, in no apparent distress Head exam: Present: atraumatic, normocephalic, normal inspection Eye exam: Present: normal appearance, PERRL, EOMI. Absent: scleral icterus, conjunctival injection, periorbital swelling ENT exam: Present: normal exam, mucous membranes moist Neck exam: Present: normal inspection. Absent: tenderness, meningismus, lymphadenopathy Respiratory exam: Present: normal lung sounds bilaterally. Absent: respiratory distress, wheezes, rales, rhonchi, stridor Cardiovascular Exam: Present: regular rate, normal rhythm, normal heart sounds. Absent: systolic murmur, diastolic murmur, rubs, gallop, clicks GI/Abdominal exam: Present: soft, normal bowel sounds. Absent: distended, tenderness, guarding, rebound, rigid Extremities exam: Present: normal inspection, full ROM, normal capillary refill. Absent: tenderness, pedal edema, joint swelling, calf tenderness Back exam: Present: normal inspection Neurological exam: Present: alert, oriented X3, CN II-XII intact Expanded Patient oriented to: Present: person, place, time Speech: Present: fluid speech Cranial nerves: Facial Sensation: Normal Cerebellar function: Finger to Nose: Abnormal Right (Patient has overshooting) Upper motor neuron: Pronator Drift: Normal Sensory exam: Upper Extremity Light Touch: Normal, Lower Extremity Light Touch: Normal Motor strength exam: RUE: 5, LUE: 5, RLE: 5, LLE: 4 (drift to left leg) Eye Response: (4) open spontaneously Motor Response: (6) obeys commands Verbal Response: (4) confused conversation Mcdonough Total: 14 Psychiatric exam: Present: normal affect, normal mood Skin exam: Present: warm, dry, intact, normal color. Absent: rash <Jeri Wharton - Last Filed: 01/11/19 08:45> - General Exam Comments Initial Comments: 73-year-old male. Alert and oriented to self and place. Does not know day or month. Family reports that this is occasionally his baseline with history of dementia. (Jeri Wharton) Course Vital Signs 01/11/19 01/11/19 01/11/19 06:19 06:40 06:55 Temperature 98.5 F Pulse Rate 76 74 72 Respiratory 18 20 18 Rate Blood Pressure 110/66 106/70 108/72 O2 Sat by Pulse 97 98 98 Oximetry 01/11/19 08:45 Temperature Pulse Rate 76 Respiratory 16 Rate Blood Pressure 104/81 O2 Sat by Pulse 99 Oximetry Medical Decision Making - Lab Data Result diagrams: 01/11/19 06:29 01/11/19 06:29 - Radiology Data Radiology results: report reviewed <Jeri Wharton - Last Filed: 01/11/19 08:45> - Lab Data Result diagrams: 01/11/19 06:29 01/12/19 05:35 <Lisa Morgan - Last Filed: 01/20/19 00:08> - Medical Decision Making is a 73-year-old male, presents today for concern for increased confusion, general weakness, as well as frequent falls for the past few days. He did fall this morning returning to bed from using bathroom, and complains of being off balance. Does have a history of residual left sided deficits from stroke. He does have some minor left-sided facial droop which family reports it's be chronic as well as some left-sided leg weakness. He did have abnormal finger to nose test. Patient's family also reports that they. Concern for having and infection over the past few days as she had a slightly increased cough. Chest x-ray shows developing pneumonia. Blood cultures obtained and Patient was started on Rocephin. Patient likely has dehydrated with dry lips. BUN and creatinine are elevated. He was given fluid bolus. I discussed admission for dehydration, ataxia, and pneumonia. Patient's family understands treatment plan. Scuff the case with Dr. Kaminski discussed the case with Dr. osorio. (Jeri Wharton) I was available for consultation in the emergency department. The history and physical exam were done by the midlevel provider. I was consulted for this patients care. I reviewed the case with the midlevel provider and based on their presentation of the patient, I agree with the assessment, medical decision making and plan of care as documented. I evaluated the patient myself and agree with admission. Chart was dictated using [employer] dictation software. Attempts were made to correct any dictation errors however some typographical errors may persist. (Lisa Morgan) - Lab Data Lab Results 01/11/19 01/11/19 01/11/19 Range/Units 06:29 06:29 06:29 WBC 10.1 (3.8-10.6) k/uL RBC 3.63 L (4.30-5.90) m/uL Hgb 11.6 L (13.0-17.5) gm/dL Hct 33.5 L (39.0-53.0) % MCV 92.2 (80.0-100.0) fL MCH 32.0 (25.0-35.0) pg MCHC 34.8 (31.0-37.0) g/dL RDW 12.7 (11.5-15.5) % Plt Count 189 (150-450) k/uL Neutrophils % (Manual) 87 % Band Neutrophils % 5 % Lymphocytes % (Manual) 6 % Monocytes % (Manual) 2 % Neutrophils # (Manual) 9.20 H (1.3-7.7) k/uL Lymphocytes # (Manual) 0.61 L (1.0-4.8) k/uL Monocytes # (Manual) 0.20 (0-1.0) k/uL Nucleated RBCs 0 (0-0) /100 WBC Manual Slide Review Performed PT (9.0-12.0) sec INR (<1.2) APTT (22.0-30.0) sec Sodium 137 (137-145) mmol/L Potassium 4.0 (3.5-5.1) mmol/L Chloride 107 (98-107) mmol/L Carbon Dioxide 19 L (22-30) mmol/L Anion Gap 11 mmol/L BUN 40 H (9-20) mg/dL Creatinine 1.49 H (0.66-1.25) mg/dL Est GFR (CKD-EPI)AfAm 53 (>60 ml/min/1.73 sqM) Est GFR (CKD-EPI)NonAf 46 (>60 ml/min/1.73 sqM) Glucose 98 (74-99) mg/dL Calcium 8.7 (8.4-10.2) mg/dL Total Bilirubin 0.7 (0.2-1.3) mg/dL AST 84 H (17-59) U/L ALT 68 (21-72) U/L Alkaline Phosphatase 69 (38-126) U/L Ammonia 12 (<30) umol/L Troponin I (0.000-0.034) ng/mL Total Protein 6.1 L (6.3-8.2) g/dL Albumin 3.5 (3.5-5.0) g/dL Vitamin B12 (200.0-944.0) pg/mL Folate ng/mL TSH (0.465-4.680) mIU/L Urine Color Urine Appearance (Clear) Urine pH (5.0-8.0) Ur Specific [place] (1.001-1.035) Urine Protein (Negative) Urine Glucose (UA) (Negative) Urine Ketones (Negative) Urine Blood (Negative) Urine Nitrite (Negative) Urine Bilirubin (Negative) Urine Urobilinogen (<2.0) mg/dL Ur Leukocyte Esterase (Negative) Urine Opiates Screen (NotDetected) Ur Oxycodone Screen (NotDetected) Urine Methadone Screen (NotDetected) Ur Propoxyphene Screen (NotDetected) Ur Barbiturates Screen (NotDetected) U Tricyclic Antidepress (NotDetected) Ur Phencyclidine Scrn (NotDetected) Ur Amphetamines Screen (NotDetected) U Methamphetamines Scrn (NotDetected) U Benzodiazepines Scrn (NotDetected) Urine Cocaine Screen (NotDetected) U Marijuana (THC) Screen (NotDetected) 01/11/19 01/11/19 01/11/19 Range/Units 06:29 06:29 06:29 WBC (3.8-10.6) k/uL RBC (4.30-5.90) m/uL Hgb (13.0-17.5) gm/dL Hct (39.0-53.0) % MCV (80.0-100.0) fL MCH (25.0-35.0) pg MCHC (31.0-37.0) g/dL RDW (11.5-15.5) % Plt Count (150-450) k/uL Neutrophils % (Manual) % Band Neutrophils % % Lymphocytes % (Manual) % Monocytes % (Manual) % Neutrophils # (Manual) (1.3-7.7) k/uL Lymphocytes # (Manual) (1.0-4.8) k/uL Monocytes # (Manual) (0-1.0) k/uL Nucleated RBCs (0-0) /100 WBC Manual Slide Review PT 10.4 (9.0-12.0) sec INR 1.0 (<1.2) APTT 22.1 (22.0-30.0) sec Sodium (137-145) mmol/L Potassium (3.5-5.1) mmol/L Chloride (98-107) mmol/L Carbon Dioxide (22-30) mmol/L Anion Gap mmol/L BUN (9-20) mg/dL Creatinine (0.66-1.25) mg/dL Est GFR (CKD-EPI)AfAm (>60 ml/min/1.73 sqM) Est GFR (CKD-EPI)NonAf (>60 ml/min/1.73 sqM) Glucose (74-99) mg/dL Calcium (8.4-10.2) mg/dL Total Bilirubin (0.2-1.3) mg/dL AST (17-59) U/L ALT (21-72) U/L Alkaline Phosphatase (38-126) U/L Ammonia (<30) umol/L Troponin I <0.012 (0.000-0.034) ng/mL Total Protein (6.3-8.2) g/dL Albumin (3.5-5.0) g/dL Vitamin B12 212.0 (200.0-944.0) pg/mL Folate 23.4 ng/mL TSH 1.030 (0.465-4.680) mIU/L Urine Color Urine Appearance (Clear) Urine pH (5.0-8.0) Ur Specific [place] (1.001-1.035) Urine Protein (Negative) Urine Glucose (UA) (Negative) Urine Ketones (Negative) Urine Blood (Negative) Urine Nitrite (Negative) Urine Bilirubin (Negative) Urine Urobilinogen (<2.0) mg/dL Ur Leukocyte Esterase (Negative) Urine Opiates Screen (NotDetected) Ur Oxycodone Screen (NotDetected) Urine Methadone Screen (NotDetected) Ur Propoxyphene Screen (NotDetected) Ur Barbiturates Screen (NotDetected) U Tricyclic Antidepress (NotDetected) Ur Phencyclidine Scrn (NotDetected) Ur Amphetamines Screen (NotDetected) U Methamphetamines Scrn (NotDetected) U Benzodiazepines Scrn (NotDetected) Urine Cocaine Screen (NotDetected) U Marijuana (THC) Screen (NotDetected) 01/11/19 01/12/19 Range/Units 08:41 05:35 WBC (3.8-10.6) k/uL RBC (4.30-5.90) m/uL Hgb (13.0-17.5) gm/dL Hct (39.0-53.0) % MCV (80.0-100.0) fL MCH (25.0-35.0) pg MCHC (31.0-37.0) g/dL RDW (11.5-15.5) % Plt Count (150-450) k/uL Neutrophils % (Manual) % Band Neutrophils % % Lymphocytes % (Manual) % Monocytes % (Manual) % Neutrophils # (Manual) (1.3-7.7) k/uL Lymphocytes # (Manual) (1.0-4.8) k/uL Monocytes # (Manual) (0-1.0) k/uL Nucleated RBCs (0-0) /100 WBC Manual Slide Review PT (9.0-12.0) sec INR (<1.2) APTT (22.0-30.0) sec Sodium 139 (137-145) mmol/L Potassium 4.1 (3.5-5.1) mmol/L Chloride 110 H (98-107) mmol/L Carbon Dioxide 22 (22-30) mmol/L Anion Gap 7 mmol/L BUN 19 (9-20) mg/dL Creatinine 0.88 (0.66-1.25) mg/dL Est GFR (CKD-EPI)AfAm >90 (>60 ml/min/1.73 sqM) Est GFR (CKD-EPI)NonAf 85 (>60 ml/min/1.73 sqM) Glucose 98 (74-99) mg/dL Calcium 8.9 (8.4-10.2) mg/dL Total Bilirubin (0.2-1.3) mg/dL AST (17-59) U/L ALT (21-72) U/L Alkaline Phosphatase (38-126) U/L Ammonia (<30) umol/L Troponin I (0.000-0.034) ng/mL Total Protein (6.3-8.2) g/dL Albumin (3.5-5.0) g/dL Vitamin B12 (200.0-944.0) pg/mL Folate ng/mL TSH (0.465-4.680) mIU/L Urine Color Yellow Urine Appearance Clear (Clear) Urine pH 5.0 (5.0-8.0) Ur Specific [place] 1.018 (1.001-1.035) Urine Protein Trace H (Negative) Urine Glucose (UA) Negative (Negative) Urine Ketones Trace H (Negative) Urine Blood Negative (Negative) Urine Nitrite Negative (Negative) Urine Bilirubin Negative (Negative) Urine Urobilinogen <2.0 (<2.0) mg/dL Ur Leukocyte Esterase Negative (Negative) Urine Opiates Screen Not Detected (NotDetected) Ur Oxycodone Screen Detected H (NotDetected) Urine Methadone Screen Not Detected (NotDetected) Ur Propoxyphene Screen Not Detected (NotDetected) Ur Barbiturates Screen Not Detected (NotDetected) U Tricyclic Antidepress Not Detected (NotDetected) Ur Phencyclidine Scrn Not Detected (NotDetected) Ur Amphetamines Screen Not Detected (NotDetected) U Methamphetamines Scrn Not Detected (NotDetected) U Benzodiazepines Scrn Not Detected (NotDetected) Urine Cocaine Screen Not Detected (NotDetected) U Marijuana (THC) Screen Not Detected (NotDetected) - Radiology Data EKG shows normal sinus rhythm, low-voltage QRS. Borderline ECG. Ventricular rate of 60 bpm. Verbal is 158 ms. QS confucianism is 82 ms. QT QTc is 368/391 ms. Age-related atrophy and chronic small vessel ischemic changes on EKG and cranial process seen at this time. C-spine is negative for fracture subluxation. (Jeri Wharton) Disposition Is patient prescribed a controlled substance at d/c from ED?: No Time of Disposition: 08:47 <Jeri Wharton - Last Filed: 01/11/19 08:45> <Lisa Morgan - Last Filed: 01/20/19 00:08> Clinical Impression: Ataxia, Dehydration, Pneumonia Disposition: ADMITTED IP TO THIS HOSP Condition: Stable
[2019-01-11 06:54] LABS: HCT 33.5 % (39.0-53.0); HGB 11.6 gm/dL (13.0-17.5); MCHC 34.8 g/dL (31.0-37.0); MCV 92.2 fL (80.0-100.0); Mean Platelet Volume 6.9; Platelet Count 189 k/uL (150-450); RBC 3.63 m/uL (4.30-5.90); RDW 12.7 % (11.5-15.5); WBC 10.1 k/uL (3.8-10.6)
[2019-01-11 06:56] LABS: Partial Thromboplastin Time 22.1 sec (22.0-30.0); Prothrombin Time 10.4 sec (9.0-12.0)
[2019-01-11 06:57] LABS: Albumin 3.5 g/dL (3.5-5.0); Calcium 8.7 mg/dL (8.4-10.2); Total Bilirubin 0.7 mg/dL (0.2-1.3); Total Protein 6.1 g/dL (6.3-8.2)
[2019-01-11 07:15] LABS: Band Neutrophils % 5 %; Lymphocytes # (M) 0.61 k/uL (1.0-4.8); Neutrophils % (M) 87 %; Nucleated Red Blood Cells 0 /100 WBC (0-0); Total Cells Counted 100
--- NOTE | 2019-01-11 07:34 | CT ---
EXAMINATION TYPE: CT brain gagan ureña DATE OF EXAM: 01/11/2019 COMPARISON: October 17, 2017 HISTORY: Altered mental status CT DLP: 1434.[address] of the brain was performed. The ventricles, basal cisterns and sulci overlying the cerebral convexities demonstrate mild enlargem ent. There is no evidence for intracranial hemorrhage or sulcal effacement. There is decreased attenuatio n about the periventricular white matter and deep white matter of both cerebral hemispheres, compatib le with chronic small vessel ischemia. No mass effects are seen. If symptoms persist consider MRI. Osseous calvarium is intact. IMPRESSION: 1. Age related atrophic and chronic small vessel ischemic change without acute intracranial process seen at this time. CT Cervical Spine: Unenhanced CT of the cervical spine was performed with bone and soft tissue window settings submitted . Coronal and sagittal reconstruction is obtained. There is normal alignment and prevertebral soft tissues. No evidence for acute cervical fracture . Scattered degenerative disc disease and spondylosis. Biapical scarring. IMPRESSION: 1. No evidence for acute fracture or subluxation of the cervical spine.
--- NOTE | 2019-01-11 07:35 | XR ---
EXAMINATION TYPE: XR chest 2V DATE OF EXAM: 01/11/2019 COMPARISON: 322 HISTORY: Shortness of breath TECHNIQUE: Frontal and lateral views of the chest are obtained. FINDINGS: Scattered senescent parenchymal changes noted. Hyperinflation compatible with COPD. Patchy basilar infiltrates may reflect developing pneumonia. Heart size is stable. Mediastinal structures are stable and grossly unremarkable. No evidence for hilar prominence. Degenerative changes dorsal spine. IMPRESSION: 1. Patchy basilar infiltrates may reflect developing pneumonia.
[2019-01-11] MEDS ORDERED: cefTRIAXone IN SWFI 1,000 MG/10 ML SYRINGE IVP STA (07:51)
[2019-01-11] MEDS ORDERED: AZITHROMYCIN 500 MG TAB PO STA (08:48)
[2019-01-11] MEDS ORDERED: ASPIRIN 81 MG PO STA (08:48)
[2019-01-11 08:49] LABS: Appearance,Urine Clear (Clear); Bilirubin,Urine Negative (Negative); Blood,Urine Negative (Negative); Color,Urine Yellow; Glucose,Urine (UA) Negative (Negative); Ketones,Urine Trace (Negative); Leukocyte Esterase,Urine Negative (Negative); Nitrite,Urine Negative (Negative); Protein,Urine Trace (Negative); Specific Gravity,Urine 1.018 (1.001-1.035); Urobilinogen,Urine <2.0 mg/dL (<2.0)
[2019-01-11] MEDS ORDERED: NALOXONE 0.4 MG/ML 1 ML VIAL IV PRN (08:49)
[2019-01-11] MEDS ORDERED: MORPHINE SULFATE 4 MG/ML SYRINGE IV PRN (08:49)
[2019-01-11] MEDS ORDERED: Acetaminophen-Codeine 300-30mg TAB PO PRN (08:49)
[2019-01-11] MEDS ORDERED: IBUPROFEN 400 MG TAB PO PRN (08:49)
[2019-01-11] MEDS ORDERED: ACETAMINOPHEN TAB 325 MG TAB PO PRN (08:49)
[2019-01-11] MEDS ORDERED: ONDANSETRON 4 MG/2 ML VIAL IVP PRN (08:49)
[2019-01-11] MEDS ORDERED: PNEUMONIA PROTOCOL UTILIZED 1 EACH MISC PO PRN (08:51)
[2019-01-11] MEDS ORDERED: IPRATROPIUM-ALBUTEROL 3 ML NEB INHALATION PRN (08:51)
[2019-01-11 09:09] LABS: Amphetamine Screen,Urine Not Detected (NotDetected); Barbiturate Screen,Urine Not Detected (NotDetected); Benzodiazepines Screen,Urine Not Detected (NotDetected); Cocaine Screen,Urine Not Detected (NotDetected); Methadone Screen, Urine Not Detected (NotDetected); Opiate Screen,Urine Not Detected (NotDetected); Oxycodone Screen, Urine Detected (NotDetected); Phencyclidine Screen,Urine Not Detected (NotDetected); Tricyclic Antidepressant,Urine Not Detected (NotDetected); Urn Cannabinoid Scrn Not Detected (NotDetected)
[2019-01-11] MEDS ORDERED: INFLUENZA VACCINE (6 MOS+) 60 MCG/0.5 ML SYRINGE IM ONE (10:16)
[2019-01-11] MEDS ORDERED: PNEUMOCOCCAL VACC-PNEUMOVAX 23 25 MCG/0.5 ML VIAL IM ONE (10:16)
[2019-01-11] MEDS ORDERED: oxyCODONE-APAP 10-325MG 1 EACH TAB PO PRN (10:33)
[2019-01-11] MEDS ORDERED: LISINOPRIL 20 MG TAB PO SCH (10:45)
[2019-01-11] MEDS ORDERED: amLODIPine 5 MG TAB PO SCH (10:45)
[2019-01-11] MEDS: ISOSORBIDE MONONITRATE ER 30 MG TAB.ER.24H PO SCH (11:38)
[2019-01-11] MEDS: PANTOPRAZOLE 40 MG/10 ML VIAL IV SCH (11:38)
[2019-01-11] MEDS: MEMANTINE 10 MG TAB PO SCH ×2 (11:46→22:08)
[2019-01-11] MEDS ORDERED: LORazepam 2 MG/ML INJ IM STA (12:02)
[2019-01-11] MEDS ORDERED: LORazepam 2 MG/ML INJ IV STA (12:02)
[2019-01-11] MEDS: oxyCODONE ER 15 MG TAB.ER.12H PO SCH ×2 (12:54→22:08)
[2019-01-11] MEDS: FERROUS SULFATE 325 MG TAB PO SCH ×2 (14:03→22:07)
[2019-01-11] MEDS: MULTIVITAMINS, THERA 1 EACH TAB PO SCH (14:03)
--- NOTE | 2019-01-11 14:04 | P.CNNES ---
History of Present Illness Consult date: 01/11/19 Requesting physician: Jeri Wharton Chief complaint: Ataxia history of stroke History of Present Illness: Patient is a 73-year-old male who has history of dementia, was brought to the hospital after he suffered from a fall while going to the bathroom. Patient states that he was watching a baseball game, was standing for 15 minutes when he lost balance and fell, did not pass out. I spoke to patient's on the phone who provided completely different history. She states that early a.m. she noticed that he was cold, shivering. She put blankets him and him and he felt better. He later got up to go to the bathroom. He felt disoriented, difficulty finding way to the bathroom. After going to the bathroom, he was coming back towards his bed, and while getting into the bed, he probably lost balance and fell down. He did not pass out. Patient did not complain of dizziness prior to the fall. He states he was not feeling well. Patient continued to feel very tremulous, therefore she brought him to the hospital by ambulance. Patient's is positive that this was not a seizure, or seizure like episode. Patient underwent EKG which showed normal sinus rhythm. Chest x-ray showed patchy basilar infiltrate, may reflect developing pneumonia. CT of the cervical spine showed no fracture or subluxation of the cervical spine. CT of the head showed age-related atrophic and chronic small vessel ischemic changes without acute intracranial process. Patient's blood test shows normal CBC with hemoglobin 11.6. PT/PTT normal. Chem-20 significant for BUN 40 (baseline 16 06/18/2017), creatinine 1.49 (baseline 0.97), AST is mildly elevated 84 (baseline 26), ALT 68 normal. Ammonia normal 12. Total cholesterol is 209, LDL 133, HDL 47. Patient's previous B12 was 228 on 06/18/2017 with folate 21.8 and TSH 2.93. UA negative for infection. Patient's also mentions that he had history of a stroke in 1970s when he had MRI and then the stroke. He has residual left facial weakness from the stroke. Patient does not take any antiplatelet medication. Patient follows up with a neurologist in [facility], Dr. Rubio. Patient was initially placed on Aricept but developed significant side effects with behavioral problems. It was discontinued and patient started on Namenda, now on Namenda 10 mg twice a day. Patient has hypertension on were no diabetes. Denies tobacco use. Denies any alcohol use. Review of Systems Denies neck or back pain. Denies any headache. Denies double vision loss of vision dysphagia, dysarthria. Denies shortness of breath wheezing or cough. All other review of systems unremarkable. 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 Past Anesthesia/Blood Transfusion Reactions: No Reported Reaction Smoking Status: Former smoker - Past Family History Sister(s) Family Medical History: Cancer Additional Family Medical History / Comment(s): melanoma Mother Family Medical History: No Reported History Additional Family Medical History / Comment(s): Mother was healthy, not on any medications and lived to be 101 yrs old. Father Family Medical History: Myocardial Infarction ([place]) Additional Family Medical History / Comment(s): Father of a [place] at the age of 47yrs. Medications and Allergies Home Medications Medication Instructions Recorded Confirmed Type oxyCODONE-APAP 10-325MG [Percocet 1 tab PO Q6H PRN 03/17/16 01/11/19 History 10-325 mg] Lisinopril 40 mg PO QAM 04/28/17 01/11/19 History Pravastatin Sodium [Pravachol] 20 mg PO HS 04/28/17 01/11/19 History amLODIPine BESYLATE [Norvasc] 5 mg PO QAM 04/28/17 01/11/19 History Multivitamins, Thera [Multivitamin 1 tab PO DAILY 08/17/17 01/11/19 History (formulary)] Ferrous Sulfate [Iron (65 MG 325 mg PO BID 09/07/17 01/11/19 History Elemental)] Isosorbide Mononitrate [Isosorbide 30 mg PO QAM 09/07/17 01/11/19 History Mononitrate ER] Aspirin 324 mg PO ONCE chew 01/11/19 Rx Azithromycin [Zithromax] 500 mg PO ONCE tab 01/11/19 Rx Memantine [Namenda] 10 mg PO BID 01/11/19 01/11/19 History oxyCODONE ER [OxyCONTIN] 15 mg PO Q12HR 01/11/19 01/11/19 History Allergies Allergy/AdvReac Type Severity Reaction Status Date / Time buprenorphine [From Butrans] Allergy Rash/Hives Verified 01/11/19 08:12 meperidine [From Demerol] Allergy Swelling Verified 01/11/19 08:12 Physical Examination - Vital Signs Vital Signs: Vital Signs Temp Pulse Pulse Resp BP BP BP 01/11/19 12:41 88 109/67 01/11/19 11:47 75 16 92/52 01/11/19 11:24 77 90/52 01/11/19 11:06 80 16 01/11/19 10:59 80 89/46 01/11/19 10:38 97 F L 87 16 83/51 87/51 01/11/19 08:45 76 16 104/81 01/11/19 06:55 72 18 108/72 01/11/19 06:40 74 20 106/70 01/11/19 06:19 98.5 F 76 18 110/66 Pulse Ox 01/11/19 12:41 01/11/19 11:47 96 01/11/19 11:24 01/11/19 11:06 01/11/19 10:59 01/11/19 10:38 97 01/11/19 08:45 99 01/11/19 06:55 98 01/11/19 06:40 98 01/11/19 06:19 97 Intake and Output 01/10/19 01/11/19 01/11/19 22:59 06:59 14:59 Output Total 200 Balance -200 Output: Urine 200 Other: Weight 67.041 kg On examination patient is an elderly male, in no acute distress. He is alert and awake. Patient knows that he is in [facility] in [facility]. He thinks it is the month of July or August and it is summer season, heading to fall. He knows his age of 73 and his date of 1945. He could not tell name of the current president, but when I gave choices, he was able to pick the right president. Patient has negative palmomental reflex, positive visuospatial apraxia. Each and language functions are normal. Attention and concentration is normal but fund of knowledge is limited. On cranial exam showed pupils are round and reactive to light, visual baez are full on confrontation except muscles are intact. He has left facial weakness, peripheral type. Tongue protrudes the midline. Palatal elevation and sensation normal. On muscle strength testing there is no pronator drift and the strength is normal in arms and legs distally and proximally. Reflexes are 1 in the upper limbs, 2 at the knees, 1 at ankles and plantars downgoing. Sensory touch is equal with no neglect. No ataxia for [id number] testing. Tone and bulk of muscles normal. Gait deferred. Results - Laboratory Findings CBC and BMP: 01/11/19 06:29 01/11/19 06:29 Abnormal Lab Findings: Abnormal Labs 01/11/19 01/11/19 01/11/19 06:29 06:29 08:41 RBC 3.63 L Hgb 11.6 L Hct 33.5 L Neutrophils # (Manual) 9.20 H Lymphocytes # (Manual) 0.61 L Carbon Dioxide 19 L BUN 40 H Creatinine 1.49 H AST 84 H Total Protein 6.1 L Urine Protein Trace H Urine Ketones Trace H Ur Oxycodone Screen Detected H Assessment and Plan Assessment: * Altered mental status, tremor, status post fall. Patient probably has mild delirium due to reasons mentioned below. No definitive evidence of CVA. * Mild renal insufficiency, likely prerenal from dehydration. * Abnormal chest x-ray, rule out developing pneumonia. 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 I do not see any evidence of CVA. * Hydration. * Patient has been started on Rocephin for possible pneumonia. * We will check carotid Doppler to rule out stenosis. * We will check B12, folate. * We will follow.
--- NOTE | 2019-01-11 16:04 | MR ---
EXAMINATION TYPE: MR brain wo/w con DATE OF EXAM: 01/11/2019 COMPARISON: CT brain from earlier today HISTORY: Ataxia, AMS TECHNIQUE: Multiplanar, multisequence images of the brain and brainstem is performed without and with IV contras t, utilizing 7 mL intravenous Gadavist . FINDINGS: Diffusion weighted images demonstrate no evidence of a recent infarct or other diffusion ab normality. There is no worrisome extra-axial fluid collection. There is diffuse ventricular and sulc al prominence redemonstrated. There are scattered foci of T2 hyperintensity demonstrated throughout t he white matter bilaterally. Lesions are nonspecific in appearance and distribution but presumed on t he basis of product of proximal vessel ischemic change in patient of this age. Midline structures demonstrate normal morphology. The craniocervical junction appears within normal limits. Post contrast images demonstrate no abnormal enhancement. Tortuous course to the distal vert ebral arteries incidentally noted. The dural venous sinuses appear patent. The visualized sinuses are clear and the globes are intact. IMPRESSION: No evidence of a recent infarct. Mild to moderate diffuse cerebral atrophy and chronic sm all vessel ischemic changes are present.
--- NOTE | 2019-01-11 17:48 | P.HPIM ---
History of Present Illness H&P Date: 01/11/19 Chief Complaint: Increasing confusion History of presenting complaint: This is a 73-year-old patient of Dr. queen. Chronic stable medical conditions include coronary artery disease, GERD, hypertension, hyperlipidemia, CVA with a droopy left eye, gastritis. EMS was called by the when patient is found to be more confused and falling. Patient has underlying dementia and is forgetful. Patient is found to be more confused. He fell down once. When he tried to go back to his. He became a cane more confused and fell down. Patient is able to answer simple questions to be. He is not sure why he is here. Denies any trouble. Breathing. No respiratory symptoms. No urinary symptoms. Appetite is fair. Review of systems: GEN.: Tired EYES: None HEENT: None NECK: None RESPIRATORY: None CARDIOVASCULAR: None GASTROINTESTINAL: None GENITOURINARY: None MUSCULOSKELETAL: None LYMPHATICS: None HEMATOLOGICAL: None PSYCHIATRY: Forgetful NEUROLOGICAL: Some trouble walking Past medical history as listed: Coronary artery disease, dementia, GERD, hyperlipidemia, hypertension, CVA a droopy left eye slight memory loss, back fracture and fractured left foot, anemi a, gastritis Social history: Depression,(. No longer drives. Patient spoke about 5 years stopped in 1982. Alcohol rarely. Physical examination: VITAL SIGNS: 98.5, 76, 18, 110/66, 97% room air GENERAL: BMI 20, laying in bed comfortable. EYES: Pupils equal. Conjunctiva normal. HEENT: External appearance of nose and ears normal, oral cavity grossly normal. NECK: JVD not raised; masses not palpable. HEART: First and second heart sounds are normal; no edema. LUNGS: Respiratory rate normal; clear to auscultation. ABDOMEN: Soft, nontender, liver spleen not palpable, no masses palpable. PSYCH: Patient knows his name can also some simple questions but does not want to year or why he is herel. NEUROLOGICAL: Cranial nerves grossly intact; no facial asymmetry, power and sensation grossly intact. LYMPHATICS: No lymph nodes palpable in the axilla and neck INVESTIGATIONS, reviewed in the clinical context: White count 10 hemoglobin 11.6 platelets 189 pressure for bun 40 creatinine 1.49 UA showing trace protein and trace ketones Urine drug. Positive for oxycodone Computed tomography scan brain and spine-age related atrophic changes with chronic small vessel changes, no evidence of fracture Chest x-ray film personally reviewed by me-right lower lobe patchy infiltrate EKG tracing personally reviewed by me-normal sinus rhythm MRI brain-with and without contrast-no evidence of recent infarct. Mild to moderate diffuse cerebral atrophy Assessment: -This is a patient with underlying dementia with auditory more confused. Denies any obvious respiratory symptoms. Checks x-ray showing a right-sided infiltrate. Right lower lobe pneumonia suspect gram-negative organism -Possible acute delirium from pneumonia -Major cognitive impairment and -GERD -Hyperlipidemia -Essential hypertension Plan: Patient started and IV ceftriaxone and Zithromax. Home medications resumed. We'll give Lovenox for DVT prophylaxis. Because of change in mental status following we'll also do full neurological workup. No obvious focalizing signs. No family present at bedside. Neurological consultation will be obtained. MRI of the brain was ordered. We'll do fall precautions. No family at the bedside.. 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 Past Anesthesia/Blood Transfusion Reactions: No Reported Reaction Smoking Status: Former smoker - Past Family History Sister(s) Family Medical History: Cancer Additional Family Medical History / Comment(s): melanoma Mother Family Medical History: No Reported History Additional Family Medical History / Comment(s): Mother was healthy, not on any medications and lived to be 101 yrs old. Father Family Medical History: Myocardial Infarction ([place]) Additional Family Medical History / Comment(s): Father of a [place] at the age of 47yrs. Medications and Allergies Home Medications Medication Instructions Recorded Confirmed Type oxyCODONE-APAP 10-325MG [Percocet 1 tab PO Q6H PRN 03/17/16 01/11/19 History 10-325 mg] Lisinopril 40 mg PO QAM 04/28/17 01/11/19 History Pravastatin Sodium [Pravachol] 20 mg PO HS 04/28/17 01/11/19 History amLODIPine BESYLATE [Norvasc] 5 mg PO QAM 04/28/17 01/11/19 History Multivitamins, Thera [Multivitamin 1 tab PO DAILY 08/17/17 01/11/19 History (formulary)] Ferrous Sulfate [Iron (65 MG 325 mg PO BID 09/07/17 01/11/19 History Elemental)] Isosorbide Mononitrate [Isosorbide 30 mg PO QAM 09/07/17 01/11/19 History Mononitrate ER] Aspirin 324 mg PO ONCE chew 01/11/19 Rx Azithromycin [Zithromax] 500 mg PO ONCE tab 01/11/19 Rx Memantine [Namenda] 10 mg PO BID 01/11/19 01/11/19 History oxyCODONE ER [OxyCONTIN] 15 mg PO Q12HR 01/11/19 01/11/19 History Allergies Allergy/AdvReac Type Severity Reaction Status Date / Time buprenorphine [From Butrans] Allergy Rash/Hives Verified 01/11/19 08:12 meperidine [From Demerol] Allergy Swelling Verified 01/11/19 08:12 Physical Exam Vitals: Vital Signs Temp Pulse Pulse Resp BP BP BP 01/11/19 16:00 16 01/11/19 15:50 98.2 F 93 16 111/62 01/11/19 12:41 88 109/67 01/11/19 11:47 75 16 92/52 01/11/19 11:24 77 90/52 01/11/19 11:06 80 16 01/11/19 10:59 80 89/46 01/11/19 10:38 97 F L 87 16 83/51 87/51 01/11/19 08:45 76 16 104/81 01/11/19 06:55 72 18 108/72 01/11/19 06:40 74 20 106/70 01/11/19 06:19 98.5 F 76 18 110/66 Pulse Ox 01/11/19 16:00 01/11/19 15:50 96 01/11/19 12:41 01/11/19 11:47 96 01/11/19 11:24 01/11/19 11:06 01/11/19 10:59 01/11/19 10:38 97 01/11/19 08:45 99 01/11/19 06:55 98 01/11/19 06:40 98 01/11/19 06:19 97 Intake and Output 01/11/19 01/11/19 01/11/19 06:59 14:59 22:59 Intake Total 800 Output Total 500 400 Balance -500 400 Intake: IV 800 Sodium Chloride 0.9% 1, 800 000 ml @ 150 mls/hr IV . Q6H40M [facility] Rx#:[id number] Output: Urine 500 400 Other: Voiding Method Toilet Urinal # Voids 2 Weight 67.041 kg Results CBC & Chem 7: 01/11/19 06:29 01/11/19 06:29 Labs: Abnormal Lab Results - Last 24 Hours (Table) 01/11/19 01/11/19 01/11/19 Range/Units 06:29 06:29 08:41 RBC 3.63 L (4.30-5.90) m/uL Hgb 11.6 L (13.0-17.5) gm/dL Hct 33.5 L (39.0-53.0) % Neutrophils # (Manual) 9.20 H (1.3-7.7) k/uL Lymphocytes # (Manual) 0.61 L (1.0-4.8) k/uL Carbon Dioxide 19 L (22-30) mmol/L BUN 40 H (9-20) mg/dL Creatinine 1.49 H (0.66-1.25) mg/dL AST 84 H (17-59) U/L Total Protein 6.1 L (6.3-8.2) g/dL Urine Protein Trace H (Negative) Urine Ketones Trace H (Negative) Ur Oxycodone Screen Detected H (NotDetected) Thrombosis Risk Factor Assmnt - Choose All That Apply Any of the Below Risk Factors Present?: Yes Each Factor Represents 1 point: Serious lung disease incl. pneumonia (< 1month) Other Risk Factors: Yes Each Risk Factor Represents 2 Points: Age 61-74 years Other congenital or acquired thrombophilia - If yes, enter type in comment: No Thrombosis Risk Factor Assessment Total Risk Factor Score: 3 Thrombosis Risk Factor Assessment Level: Moderate Risk
--- NOTE | 2019-01-11 18:20 | US ---
EXAMINATION TYPE: US carotid duplex BILAT DATE OF EXAM: 01/11/2019 COMPARISON: MR, CT Brain CLINICAL HISTORY: Fall, AMS, history of CVA. Dementia per patient's . EXAM MEASUREMENTS: RIGHT: Peak Systolic Velocity (PSV) cm/sec ----- Right CCA: 74.0 ----- Right ICA: 102.7 ----- Right ECA: 71.0 ICA/CCA ratio: 1.4 RIGHT: End Diastole cm/sec ----- Right CCA: 21.7 ----- Right ICA: 25.6 ----- Right ECA: 19.3 LEFT: Peak Systolic Velocity (PSV) cm/sec ----- Left CCA: 84.9 ----- Left ICA: 119.8 ----- Left ECA: 77.9 ICA/CCA ratio: 1.4 LEFT: End Diastole cm/sec ----- Left CCA: 25.4 ----- Left ICA: 33.1 ----- Left ECA: 18.3 VERTEBRALS (direction of flow): Right Vertebral: Antegrade Left Vertebral: Antegrade Rhythm: Normal Moderate, irregular, calcified wall plaque noted in bilateral carotid systems, but PSV is wnl bilater ally. IMPRESSION: There is antegrade flow in the vertebral arteries. There is bilateral plaque formation in the carotid arteries. The images and measurements suggest 20-30% stenosis in both internal carotid arteries. Criteria for Assigning % of Stenosis / Diameter reduction (Estimation based on the indirect measurements of the internal carotid artery velocities (ICA PSV). 1. Normal (no stenosis)=ICA PSV < 125 cm/s: ratio < 2.0: ICA EDV<40 cm/s. 2. Less than 50% stenosis=ICA PSV < 125 cm/s: ratio < 2.0: ICA EDV<40 cm/s. 3. 50 to 69% stenosis=ICA PSV of 125 to 230 cm/s: ration 2.0 ? 4.0: ICA EDV 40-100 cm/s. 4. Greater than 70% stenosis to near occlusion= ICA PSV > 230 cm/s: ratio > 4.0: ICA EDV > 100 cm/s. 5. Near occlusion= ICA PSV velocities may be low or undetectable: variable ratio and ICA EDV. 6. Total occlusion=unable to detect flow.
[2019-01-11] MEDS: LACTATED RINGERS 1,000 ML IV SCH (18:24)
[2019-01-11] MEDS: ENOXAPARIN 40 MG/0.4 ML SYRINGE SQ SCH (18:25)
[2019-01-11] MEDS ORDERED: PRAVASTATIN SODIUM 20 MG TAB PO SCH (21:00)
[2019-01-12 01:28] LABS: Folate, Serum 23.4 ng/mL
[2019-01-12 06:13] LABS: African American GFR (CKD) >90 (>60 ml/min/1.73 sqM); Anion Gap 7 mmol/L; Blood Urea Nitrogen 19 mg/dL (9-20); Calcium 8.9 mg/dL (8.4-10.2); Carbon Dioxide 22 mmol/L (22-30); Chloride 110 mmol/L (98-107); Glucose 98 mg/dL (74-99); Non-African American GFR(CKD) 85 (>60 ml/min/1.73 sqM); Potassium 4.1 mmol/L (3.5-5.1); Sodium 139 mmol/L (137-145)
[2019-01-12] MEDS: LACTATED RINGERS 1,000 ML IV SCH (06:31)
[2019-01-12 07:55] VITALS: RESP 16
[2019-01-12] MEDS: FERROUS SULFATE 325 MG TAB PO SCH (08:03)
[2019-01-12] MEDS: PANTOPRAZOLE 40 MG/10 ML VIAL IV SCH (08:03)
[2019-01-12] MEDS: MEMANTINE 10 MG TAB PO SCH (08:03)
[2019-01-12] MEDS: MULTIVITAMINS, THERA 1 EACH TAB PO SCH (08:03)
[2019-01-12] MEDS: ISOSORBIDE MONONITRATE ER 30 MG TAB.ER.24H PO SCH (08:03)
[2019-01-12] MEDS: ENOXAPARIN 40 MG/0.4 ML SYRINGE SQ SCH (08:04)
[2019-01-12] MEDS: oxyCODONE ER 15 MG TAB.ER.12H PO SCH (08:12)
[2019-01-12] MEDS ORDERED: AZITHROMYCIN 500 MG TAB PO SCH (09:00)
[2019-01-12] MEDS ORDERED: CYANOCOBALAMIN 1,000 MCG/ML 1 ML VIAL IM SCH (10:00)
[2019-01-12 11:22] VITALS: BP 126/77; PULSE 98; TEMP 98.3
--- NOTE | 2019-01-12 15:33 | P.PN ---
Subjective Progress Note Date: 01/12/19 Patient is laying comfortably in the bed. Patient's was present today. Patient's believes that he is slightly more confused probably because of being in a different environment. Patient's vitamin B12 is low 212, folic acid 23.4, TSH 1.030. Carotid Doppler is negative. MRI of the brain was negative for any acute stroke, showed mild to moderate diffuse atrophy. Objective - Vital Signs Vital signs: Vital Signs Temp 98.3 F 01/12/19 11:21 Pulse 98 01/12/19 11:21 Resp 16 01/12/19 11:21 BP 126/77 01/12/19 11:21 Pulse Ox 97 01/12/19 11:21 Intake & Output 01/11/19 01/12/19 01/12/19 18:59 06:59 18:59 Intake Total 1040 1570 Output Total 900 600 500 Balance 140 -600 1070 Weight 71.2 kg Intake: IV 800 1250 Lactated Ringers 1,000 ml 1200 @ 150 mls/hr IV .Q6H40M [facility] Rx#:[id number] Sodium Chloride 0.9% 1, 800 000 ml @ 150 mls/hr IV . Q6H40M [facility] Rx#:[id number] 1 gm In 50 Sodium Chloride 0.9% 50 ml @ 100 mls/hr IVPB Q24HR [facility] Rx#:[id number] Oral 240 320 Output: Urine 900 600 500 Other: Voiding Method Toilet Toilet Toilet Urinal Urinal Urinal # Voids 2 1 2 - Exam Patient is alert and awake, pleasant, in no distress. His examination remains unchanged. - Labs CBC & Chem 7: 01/11/19 06:29 01/12/19 05:35 Labs: Abnormal Lab Results - Last 24 Hours (Table) 01/12/19 Range/Units 05:35 Chloride 110 H (98-107) mmol/L Microbiology - Last 24 Hours (Table) 01/11/19 08:41 Blood Culture - Preliminary Blood No Growth after 24 hours Assessment and Plan Assessment: * Altered mental status, tremor, status post fall. Patient probably has mild delirium due to reasons mentioned below. No definitive evidence of CVA. * Mild renal insufficiency, likely prerenal from dehydration. * Abnormal chest x-ray, rule out developing pneumonia. 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 * Hydration. * Patient is currently on Zithromax for possible pneumonia. * Carotid Doppler was negative for stenosis. * Patient has vitamin B12 deficiency, will be started on IM B12 replacement. * Neurologically clear for discharge.
[2019-01-13] MEDS ORDERED: PANTOPRAZOLE 40 MG TABLET PO SCH (07:30)
--- NOTE | 2019-01-15 15:00 | P.DS ---
Providers Date of admission: 01/12/19 10:14 Expected date of discharge: 01/12/19 Attending physician: Chandana Lowe Consults: 01/11/19 08:49 Consult Physician Stat Consulting Provider: Delia Dwyer Consult Reason/Comments: Ataxia, Hx stroke Do you want consulting provider notified?: Yes Primary care physician: Terrance [facility] Course: Chief Complaint: Increasing confusion History of presenting complaint: This is a 73-year-old patient of Dr. fowler. Chronic stable medical conditions include coronary artery disease, GERD, hypertension, hyperlipidemia, CVA with a droopy left eye, gastritis. EMS was called by the when patient is found to be more confused and falling. Patient has underlying dementia and is forgetful. Patient is found to be more confused. He fell down once. We'll try to get up he fell down.. Patient is able to answer simple questions. He is not sure why he is here. Denies any trouble. Breathing. No respiratory symptoms. No urinary symptoms. Appetite is fair. Patient felt to have right-sided pneumonia, acute kidney injury, and delirium from the same, treated with IV ceftriaxone. MRI of the brain showed chronic changes. Doing better before discharge. Vitamin B12 levels came back normal lower side. Started on supplementation. Okay by neurology to be discharged. Lisinopril. Discontinue. Consultation: Dr. Peters from neurology Physical examination: VITAL SIGNS: 98.3, 98, 16, 126/77, 97% room air GENERAL: Sitting up, comfortable EYES: Pupils equal. Conjunctiva normal. HEENT: External appearance of nose and ears normal, oral cavity grossly normal. NECK: JVD not raised; masses not palpable. HEART: First and second heart sounds are normal; no edema. LUNGS: Respiratory rate normal; clear to auscultation. ABDOMEN: Soft, nontender, liver spleen not palpable, no masses palpable. PSYCH: Able to answer simple questions NEUROLOGICAL: Cranial nerves grossly intact; no facial asymmetry, power and sensation grossly intact. INVESTIGATIONS, reviewed in the clinical context: Bun 19 creatine 0.88 Previous testing White count 10 hemoglobin 11.6 platelets 189 pressure for bun 40 creatinine 1.49 UA showing trace protein and trace ketones Urine drug. Positive for oxycodone Computed tomography scan brain and spine-age related atrophic changes with chronic small vessel changes, no evidence of fracture Chest x-ray film personally reviewed by me-right lower lobe patchy infiltrate EKG tracing personally reviewed by me-normal sinus rhythm MRI brain-with and without contrast-no evidence of recent infarct. Mild to moderate diffuse cerebral atrophy Assessment: -Acute delirium from pneumonia and acute kidney injury, POA -Acute kidney injury, prerenal, POA. -Right lower lobe pneumonia suspect gram-negative organism, POA -Major cognitive impairment -GERD -Hyperlipidemia -Essential hypertension -Vitamin B12 deficiency Disposition: Home Patient Condition at Discharge: Stable Plan - Discharge Summary Discharge Rx Participant: No New Discharge Prescriptions: New Cefuroxime Axetil [Ceftin] 500 mg PO BID 3 Days #6 tab Cyanocobalamin [Vitamin B-12] 1,000 mcg PO DAILY #30 tablet Continue oxyCODONE-APAP 10-325MG [Percocet 10-325 mg] 1 tab PO Q6H PRN PRN Reason: Breakthrough Pain Pravastatin Sodium [Pravachol] 20 mg PO HS amLODIPine BESYLATE [Norvasc] 5 mg PO QAM Multivitamins, Thera [Multivitamin (formulary)] 1 tab PO DAILY Isosorbide Mononitrate [Isosorbide Mononitrate ER] 30 mg PO QAM Ferrous Sulfate [Iron (65 MG Elemental)] 325 mg PO BID oxyCODONE ER [OxyCONTIN] 15 mg PO Q12HR Memantine [Namenda] 10 mg PO BID Discontinued Lisinopril 40 mg PO QAM Discharge Medication List oxyCODONE-APAP 10-325MG [Percocet 10-325 mg] 1 tab PO Q6H PRN 03/17/16 [History] Pravastatin Sodium [Pravachol] 20 mg PO HS 04/28/17 [History] amLODIPine BESYLATE [Norvasc] 5 mg PO QAM 04/28/17 [History] Multivitamins, Thera [Multivitamin (formulary)] 1 tab PO DAILY 08/17/17 [His tory] Ferrous Sulfate [Iron (65 MG Elemental)] 325 mg PO BID 09/07/17 [History] Isosorbide Mononitrate [Isosorbide Mononitrate ER] 30 mg PO QAM 09/07/17 [History] Memantine [Namenda] 10 mg PO BID 01/11/19 [History] oxyCODONE ER [OxyCONTIN] 15 mg PO Q12HR 01/11/19 [History] Cefuroxime Axetil [Ceftin] 500 mg PO BID 3 Days #6 tab 01/12/19 [Rx] Cyanocobalamin [Vitamin B-12] 1,000 mcg PO DAILY #30 tablet 01/12/19 [Rx] Follow up Appointment(s)/Referral(s): Randy Rubio MD [Family Provider] - 01/29/19 12:15 pm Terrance Fowler MD [Primary Care Provider] - 01/17/19 3:00 pm Patient Instructions/Handouts: Dehydration (DC), Fall Prevention for Older Adults (DC), Pneumonia (DC) Discharge Disposition: HOME SELF-CARE
== END 2019-01-12 15:17 | disposition home or self-care (01) | DRG 178 ==
LOC: EC 06:16 → 3SCARD 09:47 → OBSVTOIN 01-12 10:14
PROVIDERS: ADMIT Hospitalist; ATTEND Hospitalist
PROC: 3E02340 Introduction of Influenza Vaccine into Muscle, Percutaneous Approach (ICD-10-PCS; principal; 2019-01-11)
PROC: 3E0234Z Introduction of Serum, Toxoid and Vaccine into Muscle, Percutaneous Approach (ICD-10-PCS; 2019-01-11)
DX: J15.6 Pneumonia due to other Gram-negative bacteria (principal); N17.9 Acute kidney failure, unspecified; F05 Delirium due to known physiological condition; I95.9 Hypotension, unspecified; E86.0 Dehydration; F03.90 Unspecified dementia, unspecified severity, without behavioral disturbance, psychotic disturbance, mood disturbance, and anxiety; I10 Essential (primary) hypertension; K21.9 Gastro-esophageal reflux disease without esophagitis; E53.8 Deficiency of other specified B group vitamins; E78.5 Hyperlipidemia, unspecified; I69.392 Facial weakness following cerebral infarction; R40.2242 Coma scale, best verbal response, confused conversation, at arrival to emergency department; R40.2362 Coma scale, best motor response, obeys commands, at arrival to emergency department; R40.2142 Coma scale, eyes open, spontaneous, at arrival to emergency department; Z23 Encounter for immunization; I25.10 Atherosclerotic heart disease of native coronary artery without angina pectoris; R27.0 Ataxia, unspecified; R25.1 Tremor, unspecified; K29.70 Gastritis, unspecified, without bleeding; M54.9 Dorsalgia, unspecified; R29.6 Repeated falls; I25.2 Old myocardial infarction; Z79.891 Long term (current) use of opiate analgesic; Z79.899 Other long term (current) drug therapy; Z96.651 Presence of right artificial knee joint; Z98.890 Other specified postprocedural states; Z87.891 Personal history of nicotine dependence; Z86.59 Personal history of other mental and behavioral disorders; Z87.81 Personal history of (healed) traumatic fracture; Z86.2 Personal history of diseases of the blood and blood-forming organs and certain disorders involving the immune mechanism; Z98.42 Cataract extraction status, left eye; Z98.41 Cataract extraction status, right eye; Z96.1 Presence of intraocular lens; W06.XXXA Fall from bed, initial encounter; Y92.003 Bedroom of unspecified non-institutional (private) residence as the place of occurrence of the external cause; Z88.5 Allergy status to narcotic agent; Z88.8 Allergy status to other drugs, medicaments and biological substances; Z80.8 Family history of malignant neoplasm of other organs or systems; Z82.49 Family history of ischemic heart disease and other diseases of the circulatory system
CPT/HCPCS: 36415; 70450; 70553; 71046; 72125; 80048; 80053; 80306; 81003; 82140; 82607; 82746; 84443; 84484; 85025; 85610; 85730; 87040; 90686; 90732; 93005; 93880; 96361; 96374; 99285

== ENCOUNTER → 2020-09-08 | Outpatient (CLI) | payer MEDICARE ==
[2020-09-08 15:52] LABS: Chol/HDL Ratio 4.63; LDL Cholesterol,Calculated 104.6 mg/dL (0.0-131.0); VLDL Calculation 33.4 mg/dL (5.00-40.00)
== END | disposition home or self-care (01) ==
LOC: LABWHC1 09:50
PROVIDERS: ATTEND Internal Medicine Cardiovascular Disease
DX: E78.5 Hyperlipidemia, unspecified (principal)
CPT/HCPCS: 36415; 80061; 84450; 84460

== ENCOUNTER → 2021-10-07 | Outpatient (CLI) | payer MEDICARE ==
[2021-10-07 08:39] VITALS: BP 125/81; PULSE 71; RESP 18; TEMP 97.8
--- NOTE | 2021-10-07 12:46 | XR ---
EXAMINATION TYPE: XR thoracic spine 3 views DATE OF EXAM: 10/07/2021 COMPARISON: NONE HISTORY: 75-year-old male M5 1.34, pain after fall FINDINGS: Mild degenerative disc disease mid to lower thoracic spine with some endplate spondylosis noted. Vert ebral body heights are preserved and alignment is maintained. 12 vertebrae thoracic vertebral bodies. All pedicles are visualized. IMPRESSION: Mild degenerative disc disease mid to lower thoracic spine. No vertebral compression collapse or hetal lignment.
--- NOTE | 2021-10-07 14:43 | P.PAINPG ---
PQRS Measure Charge Sheet Comment: HISTORY OF PRESENT ILLNESS: 75 yr old male as a referral from Dr. Fowler presents today w severe and chronic mid back pain secondary to DDD and facet arthropathy for evaluation. Pt states his pain level is currently at 10/10 in intensity, constant, achy/ dull in character without radiation of pain. Pain has no known provocative factors. Pain is alleviated with medications (Percocet 10/325 4 times a day), use of a TENS unit, use of a cane for ambulation, physical therapy for years ago was which was ineffective in treating pain, repositioning, massage and rest. PMH: CAD, Angina, CVA/TIA, Dementia, GERD, Hyperlipidemia, HTN, CT (Last CT 1972), BPH, OA. PSH: Cardiac Cath, Lumbar Hardware placement, R Knee Total Arthroplasty, L foot ORIF, BL CTR, BL TPIs, EGD/ Colonoscopy, R Inguinal Hernia Repair, BL Cataract Resection, Cholecystectomy, Appendectomy SH: Former tobacco user FH: Mo- No history reported/ at 89. Fa- CT/ at age 46. Sister- Melanoma. All: See list Meds: See list REVIEW OF ORGAN SYSTEMS: CONSTITUTIONAL: No fevers or chills. No recent weight l oss. NEUROLOGICAL: + numbness and tingling along the distal extremities. No seizure disorders or headaches. MUSCULOSKELETAL: + pain PSYCHIATRIC: Denies current depression or suicidal thoughts. Physical Examinations : Constitutional : Cooperative , not in acute distress . Neurologic : Cranial nerve II to XII intact. No focal neurological deficits. Psychiatric : alert & oriented x 3. Matching mood & appropriate affect. Judgment & insight intact. Musculoskeletal : Cervical Spine Motor strength in the deltoid and biceps: Normal right side. Normal Left side Motor strength biceps and the wrist extensors: Normal right side . Normal left side Motor strength in the triceps muscle: Normal right side. Normal left side Deep tendon reflexes: Normal at the biceps. Normal at Brachioradialis. Normal at triceps Vertebral body tenderness to deep palpation over Cervical facet loading test: positive bilaterally Spurling test: positive bilaterally Neck distraction test: positive bilaterally Reuben sign: positive bilaterally Thoracic spine Diffuse vertebral body TTP over T7-T11 w accompanying paraspinal TTP Lumbar spine Motor strength lower extremities ,thigh and legs 5/5 Right side , 5/5 Left side Deep tendon reflexes : Normal Knee Jerk. Normal Ankle Jerk Vertebral body tenderness over Lumbar facet Loading Test: positive Right / positive Left Range of motion of the lumbar spine Flexion 30 degrees, extension 10 degrees Straight Leg Raise test: Left/ Right positive at degree Leisa test: positive right / positive left. Severe tenderness over the Sacroiliac joint on the Right / Left sides Gaenslen test: positive bilaterally Seated flexion test: positive bilaterally. Sacral spine : Severe tenderness over the Sacroiliac joint: right side / left side Range of motion: Flexion of the lumbar spine <60 degrees Range of motion: Extension of the lumbar spine <20 degrees Gaenslen's Test positive Emmanuel's Test positive Leisa test: positive right side / left side Thigh Thrust Test Sacral Thrust Test Imaging: CT without contrast of the lumbar spine from 09/24/16 reviewed Assessment/ Plan : Thoracic DDD Recommendation of x ray of thoracic spine re: M51.34 Will refer for additional imaging as needed. Pt may follow up at our clinic within 4 weeks for a re evaluation and exploration of additional treatment options. All questions answered. I have spent greater than 30 minutes on patient care today. Dr Lay was available by phone for the evaluation of this patient. The time was used to review the medical records including relevant urine studies and Prescription history (MAPs), review of the available imaging, evaluation and examination of the patient, coordination of care with the medical staff and if applicable referring physicians, as well as creation of the medical record PQRS Narrative: Smoking Status Former smoker Hx Alcohol Use (MH) No Home Medications: Ambulatory Orders oxyCODONE-APAP 10-325MG [Percocet 10-325 mg] 1 tab PO Q6H PRN 03/17/16 Pravastatin Sodium [Pravachol] 20 mg PO HS 04/28/17 amLODIPine BESYLATE [Norvasc] 5 mg PO QAM 04/28/17 Multivitamins, Thera [Multivitamin (formulary)] 1 tab PO DAILY 08/17/17 Ferrous Sulfate [Iron (65 MG Elemental)] 325 mg PO BID 09/07/17 Isosorbide Mononitrate [Isosorbide Mononitrate ER] 30 mg PO QAM 09/07/17 Memantine [Namenda] 10 mg PO BID 01/11/19 oxyCODONE ER [OxyCONTIN] 15 mg PO Q12HR 01/11/19 Cyanocobalamin [Vitamin B-12] 1,000 mcg PO DAILY #30 tablet 01/12/19 cefUROXime axetiL [Ceftin] 500 mg PO BID 3 Days #6 tab 01/12/19 Controlled Substance Measures - Controlled Substance Measures Is patient prescribed a controlled substance at discharge?: No
== END ==
LOC: PNWHC3 07:36
PROVIDERS: ATTEND Specialist
DX: M51.34 Other intervertebral disc degeneration, thoracic region (principal); I25.10 Atherosclerotic heart disease of native coronary artery without angina pectoris; Z86.73 Personal history of transient ischemic attack (TIA), and cerebral infarction without residual deficits; E78.5 Hyperlipidemia, unspecified; I10 Essential (primary) hypertension; I25.2 Old myocardial infarction; M19.90 Unspecified osteoarthritis, unspecified site; Z87.891 Personal history of nicotine dependence; Z88.8 Allergy status to other drugs, medicaments and biological substances; Z88.5 Allergy status to narcotic agent
CPT/HCPCS: 72070; G0463; 99211

== ENCOUNTER 2021-10-30 05:42 | Day surgery (SDC) | payer MEDICARE ==
[2021-10-28 15:46] VITALS: BMI 21.9
[2021-10-30] MEDS: LACTATED RINGERS 1,000 ML IV SCH ×2 (06:38→07:03)
[2021-10-30 06:46] VITALS: TEMP 97.8
[2021-10-30] MEDS ORDERED: PROPOFOL 10 MG/ML 20 ML VIAL IV ONE (07:00)
[2021-10-30 08:02] VITALS: RESP 16
[2021-10-30 08:08] VITALS: BP 139/76; PULSE 58
[2021-10-30 10:19] LABS: HCT 44.8 % (39.0-53.0); HGB 14.4 gm/dL (13.0-17.5); MCH 31.3 pg (25.0-35.0); MCHC 32.3 g/dL (31.0-37.0); MCV 97.1 fL (80.0-100.0); Mean Platelet Volume 9.2; Platelet Count 230 k/uL (150-450); RBC 4.61 m/uL (4.30-5.90); RDW 13.3 % (11.5-15.5); Reticulocyte % 1.4 % (0.5-2.0); WBC 20.2 k/uL (3.8-10.6)
[2021-10-30 10:35] LABS: Lymphocytes # (M) 11.51 k/uL (1.0-4.8); Monocytes # (M) 2.22 k/uL (0-1.0); Neutrophils # (M) 6.26 k/uL (1.3-7.7); Neutrophils % (M) 31 %; Nucleated Red Blood Cells 0 /100 WBC (0-0); Total Cells Counted 200
== END 2021-10-30 08:31 | disposition home or self-care (01) ==
LOC: OR 05:42
PROVIDERS: ATTEND Internal Medicine
DX: D72.819 Decreased white blood cell count, unspecified (principal)
CPT/HCPCS: 38222; 85025; 85045; J2704

== ENCOUNTER → 2021-10-31 | Outpatient (CLI) | payer MEDICARE ==
--- NOTE | 2021-10-31 17:08 | MR ---
EXAMINATION TYPE: MR thoracic spine wo con DATE OF EXAM: 10/31/2021 COMPARISON: There is also some fluid involving the obturator externus muscle. No focal bone destructi on. The acetabulum is intact. HISTORY: INTERVERTEBRAL DISC DEGENERATION, pain in middle of back Multiplanar multi echo imaging of the thoracic spine with no contrast. The vertebrae have fairly normal alignment. There is slight increased kyphotic curvature in the upper thoracic spine but no compression. Disc spaces are fairly normal. Thoracic spinal cord appears bill l. No spinal stenosis. The posterior elements are intact. No thoracic paraspinal mass. IMPRESSION: There is slight increased upper thoracic kyphosis but no fracture seen. No spinal stenosis. No acute abnormality of the thoracic spine.
== END | disposition home or self-care (01) ==
LOC: RADMRIMAIN 14:30
PROVIDERS: ATTEND Physician Assistant Medical
DX: M40.294 Other kyphosis, thoracic region (principal)
CPT/HCPCS: 72146

== ENCOUNTER → 2021-11-04 | Outpatient (CLI) | payer MEDICARE ==
[2021-11-04 09:32] VITALS: BP 127/79; PULSE 71; RESP 18; TEMP 98.5
--- NOTE | 2021-11-04 14:37 | P.PAINPG ---
PQRS Measure Charge Sheet Comment: A 75 yr old male w at side with a history of severe and chronic mid back pain secondary to thoracic degenerative disc diseases and spondylosis with facet arthropathy without myelopathy presents today for evaluation of thoracic MRI. Pain level is currently at 5/10 in intensity, constant, localized in mid back, achy/ sharp in character w shooting towards . Pain is provoked as high as 10/10 by inactivity. Pain is alleviated with PT x 6 wks 5 yrs ago, heat, medications (Percocet, Lidoderm), use of TENS unit, walking and rest. Interventional pain procedures completed include ESIs Patient is currently on Percocet, Lidoderm Patient denies any side effects of the medication(s), denies excessive drow siness or sleepiness, denies suicidal ideation and reports that the current pain medication is helping to control the pain and improve activities of daily living. Patient denies any motor or sensory deficits. Patient denies any fever or night sweats, denies any change in the bowel movements or urination. Physical Examination: -Constitutional: Cooperative. Not in acute distress . - Neurologic: Cranial nerve II to XII intact. No focal neurological deficits. - Psychatric: Alert & oriented x 3. Matching mood & appropriate affect. Judgment and insight intact. - Musculoskeletal: Cervical spine: Muscle bulk/ tone/ strength in the bilateral upper extremities normal Vertebral body tenderness to palpation over Spurling test positive Distraction test positive Facet loading test positive Thoracic spine Muscle bulk / tone/ strength in the bilateral paraspinal muscles normal Vertebral body tender to palpation over T8, T9 Facet loading test positive Lumbar spine: Motor bulk/ tone/ strength lower extremities , thigh and legs : 5/5 Deep tendon reflexes : Normal Knee Jerk. Normal Ankle Jerk . Vertebral body tenderness to palpation over Lumbar Facet Loading Test positive Straight Leg Raise: positive at 30 degrees right side/ left side Gaenslen's Test positive Sacral spine : Severe tenderness over the Sacroiliac joint: right side / left side Range of motion: Flexion of the lumbar spine <60 degrees Range of motion: Extension of the lumbar spine <20 degrees Gaenslen's Test positive Emmanuel's Test positive Leisa test: positive right side / left side Thigh Thrust Test Sacral Thrust Test Imaging: MRI without contrast of the thoracic spine from a 10/31/21 reviewed Assessment and plan: Chronic mid back pain secondary to thoracic degenerative disc disease , spondylosis with facet arthropathy without myelopathy Recommendation of TESI T8-T9. May need a series of injections, up to 3 within a 6 mo period, for optimal pain relief. Risks, benefits of procedure discussed and pt verbalized understanding. Denies anticoagulant use or medical history of diabetes. All patient questions answered MAPS reviewed and it was appropriate. I have spent less than 30 minutes on patient care today. Dr Lay was available by phone for the evaluation of this patient. The time was used to review the medical records including relevant urine studies and Prescription history (MAPs), review of the available imaging, evaluation and examination of the patient, coordination of care with the medical staff and if applicable referring physicians, as well as creation of the medical record PQRS Narrative: Smoking Status Former smoker Hx Alcohol Use (MH) No Home Medications: Ambulatory Orders oxyCODONE-APAP 10-325MG [Percocet 10-325 mg] 1 tab PO Q6H PRN 03/17/16 amLODIPine BESYLATE [Norvasc] 5 mg PO QAM 04/28/17 Multivitamins, Thera [Multivitamin (formulary)] 1 tab PO DAILY 08/17/17 Ferrous Sulfate [Iron (65 MG Elemental)] 325 mg PO BID 09/07/17 Isosorbide Mononitrate [Isosorbide Mononitrate ER] 30 mg PO QAM 09/07/17 Memantine [Namenda] 10 mg PO BID 01/11/19 Cyanocobalamin [Vitamin B-12] 1,000 mcg PO DAILY #30 tablet 01/12/19 Rivastigmine [Rivastigmine 13.3MG/24Hr] 1 patch TRANSDERM DAILY 10/07/21 Rosuvastatin Calcium 15 mg PO DAILY 10/07/21 Controlled Substance Measures - Controlled Substance Measures Is patient prescribed a controlled substance at discharge?: No
== END ==
LOC: PNWHC3 08:52
PROVIDERS: ATTEND Specialist
DX: M51.34 Other intervertebral disc degeneration, thoracic region (principal); M47.814 Spondylosis without myelopathy or radiculopathy, thoracic region; G89.29 Other chronic pain; Z87.891 Personal history of nicotine dependence; Z88.5 Allergy status to narcotic agent; Z88.8 Allergy status to other drugs, medicaments and biological substances
CPT/HCPCS: 99211

== ENCOUNTER → 2021-12-10 | Day surgery (SDC) | payer MEDICARE ==
[2021-12-09 10:41] VITALS: BMI 21.2
[~2021-12-10] MED LIST changes: +IOPAMIDOL M200 10 ML VIAL ONE; +IV FLUID CONTINUATION 1,000 ML IV ONE; +LACTATED RINGERS 1,000 ML IV SCH; +MIDAZOLAM 2 MG/2 ML VIAL ONE; -SODIUM CHLORIDE 0.9% 500 ML 500 ML IV SCH; +fentaNYL (PF) 50 MCG/ML 2 ML AMP ONE; +methylPREDNISolone ACETATE 40 MG/ML 1 ML VIAL ONE
[2021-12-10 08:43] VITALS: RESP 16; TEMP 98.3
--- NOTE | 2021-12-10 09:30 | P.PCN ---
Date of Procedure: 12/10/21 Description of Procedure: PREOPERATIVE DIAGNOSIS: Thoracic degenerative disc disease POSTOPERATIVE DIAGNOSIS: Thoracic degenerative disc disease Procedure: T8-T9 Epidural steroid injection under fluoroscopic guidance, SURGEON: Berhane Inman ANESTHESIA: Local with 1% lidocaine, and IV sedation Versed 1 mg, and fentanyl 50 g Sedation supervision start time 0850 Sedation supervision ended time 0917 EBL: None. Complications: None Specimens removed: None Fluoroscopic image: saved to electronic medical records PROCEDURE INDICATION: The patient had history of thoracic degenerative disc disease and thoracic spinal canal stenosis. Failed to conservative therapy. Presented for epidural steroid injection. PROCEDURE DESCRIPTION: The patient was seen and identified in the preoperative area. Risks, benefits, complications, and alternatives were discussed with the patient. The patient agreed to proceed with the procedure and signed the consent. IV was started, and vital signs were stable. Patient was taken to the procedure area, and time out was completed. The patient was placed in the prone position on procedure table and a pillow was placed under the abdomen . The lumbosacral area was prepped and draped in the usual sterile fashion. Critical pause was taken. Vital signs were closely monitored during the procedure. Using anterior-posterior fluoroscopy, the T8-T9 interlaminar space was identified, and skin and deeper tissues were localized with 1% lidocaine. Using anterior-posterior fluoroscopy, lateral fluoroscopy, and [id number] technique, a 20 gauge 3.5 Tuohy epidural needle entered the epidural space. After negative aspiration of CSF and blood with no paresthesias, 2 ml of Isovue contrast dye was injected and an good epidurogram was seen. Again after negative aspiration of CSF and blood with no paresthesias, 7 mL of block solution was injected into the epidural space. Block solution contained 40mg of Depo-Medrol and 6 mL of preservative-free normal saline. Needle was withdrawn intact, skin was cleansed, and bandages were applied. DISPOSITION / PLANS: The patient was placed in a supine position and transferred to the recovery area in a stable condition for observation. Patient was discharged from the recovery room after meeting discharge criteria. Home discharge instructions given to the patient by the staff. The patient was reexamined prior to discharge. The patient will schedule a follow up in the clinic in 4 weeks.
[2021-12-10 09:52] VITALS: BP 158/80; PULSE 72
--- NOTE | 2021-12-10 10:12 | FL ---
EXAMINATION TYPE: FL guided pain mgmt statistic DATE OF EXAM: 12/10/2021 CLINICAL HISTORY: Back pain. TECHNIQUE: Fluoroscopy. COMPARISON: None. FINDINGS: Fluoroscopic guidance was provided during pain relief procedure performed by Dr. Inman. A total of 11 seconds of fluoroscopic time was utilized during the procedure and 1 spot images are a cquired. Single image acquired shows needle localization in the thoracic spine. IMPRESSION: As Above.
== END ==
LOC: ORPAIN 08:17
DX: M51.34 Other intervertebral disc degeneration, thoracic region (principal); I10 Essential (primary) hypertension; E78.00 Pure hypercholesterolemia, unspecified; I25.10 Atherosclerotic heart disease of native coronary artery without angina pectoris; Z98.890 Other specified postprocedural states
CPT/HCPCS: 62321; 99152; 99153; J2250; J1030; J3010; Q9966

== ENCOUNTER → 2021-12-30 | Outpatient (CLI) | payer MEDICARE ==
[2021-12-30 09:11] VITALS: BP 120/79; PULSE 85; RESP 18; TEMP 98.3
--- NOTE | 2021-12-30 10:36 | P.PAINPG ---
Objective - Vital Signs Vital signs: Intake & Output 12/29/21 12/30/21 12/30/21 18:59 06:59 18:59 Weight 75.75 kg PQRS Measure Charge Sheet Comment: A 76 yr old male w at side with a history of severe and chronic mid to low back pain secondary to thoracolumbar DDD, spondylosis with facet arthropathy without myelopathy presents today for evaluation s/p TESI T8-T9. Pt states she experienced 75% pain relief x 3 wks s/p procedure. Pain level is currently at 7/10 in intensity, constant, localized in the mid back, dull in character w shooting towards BL buttocks and BLEs. Pain is provoked by bending/ lifting. Pain is alleviated with PT x 6 wks in 2018, heat, injections, medications (Tylenol, Percocet), patches, use of a cane for ambulation, use of TENS unit, repositioning and rest. Interventional pain procedures completed include TESI T8-9 x1 Patient is currently on Percocet, Tylenol Patient denies any side effects of the medication(s), denies excessive drowsiness or sleepiness, denies suicidal ideation and reports that the current pain medication is helping to control the pain and improve activities of daily living. Patient denies any motor or sensory deficits. Patient denies any fever or night sweats, denies any change in the bowel movements or urination. Physical Examination: -Constitutional: Cooperative. Not in acute distress . - Neurologic: Cranial nerve II to XII intact. No focal neurological deficits. - Psychatric: Alert & oriented x 3. Matching mood & appropriate affect. Judgment and insight intact. - Musculoskeletal: Cervical spine: Muscle bulk/ tone/ strength in the bilateral upper extremities normal Vertebral body tenderness to palpation over Spurling test positive Distraction test positive Facet loading test positive Thoracic spine Muscle bulk / tone/ strength in the bilateral paraspinal muscles normal Vertebral body tender to palpation over Facet loading test positive Lumbar spine: Motor bulk/ tone/ strength lower extremities , thigh and legs : 5/5 Deep tendon reflexes : Normal Knee Jerk. Normal Ankle Jerk . Vertebral body tenderness to palpation over Lumbar Facet Loading Test positive Straight Leg Raise: positive at 30 degrees right side/ left side Gaenslen's Test positive Sacral spine : Severe tenderness over the Sacroiliac joint: right side / left side Range of motion: Flexion of the lumbar spine <60 degrees Range of motion: Extension of the lumbar spine <20 degrees Gaenslen's Test positive Emmanuel's Test positive Leisa test: positive right side / left side Thigh Thrust Test Sacral Thrust Test Assessment and plan: Chronic mid to low back pain secondary to thoracolumbar DDD, spondylosis with facet arthropathy without myelopathy Recommendation of TESI T8-T9 #2. May need a series of injections, up to 3 within a 6mo period for optimal pain relief. Risks, benefits of procedure discussed and pt verbalized understanding. Denies anticoagulant use or medical history of diabetes. All patient questions answered I have spent less than 30 minutes on patient care today. Dr Lay was available by phone for the evaluation of this patient. The time was used to review the medical records including relevant urine studies and Prescription history (MAPs), review of the available imaging, evaluation and examination of the patient, coordination of care with the medical staff and if applicable referring physicians, as well as creation of the medical record - Pain Location Bilateral Back Non-Pharmacological Interventions: Heat, Physical Therapy, Position/Reposition Pharmacological Interventions: Epidural, PRN Medication, Scheduled Medication, Topical Medication PQRS Narrative: Smoking Status Former smoker Hx Alcohol Use (MH) No Home Medications: Ambulatory Orders amLODIPine BESYLATE [Norvasc] 5 mg PO QAM 04/28/17 Multivitamins, Thera [Multivitamin (formulary)] 1 tab PO DAILY 08/17/17 Ferrous Sulfate [Iron (65 MG Elemental)] 325 mg PO DAILY 09/07/17 Isosorbide Mononitrate [Isosorbide Mononitrate ER] 30 mg PO QAM 09/07/17 Memantine [Namenda] 10 mg PO BID 01/11/19 Cyanocobalamin [Vitamin B-12] 1,000 mcg PO DAILY #30 tablet 01/12/19 Rivastigmine [Rivastigmine 13.3MG/24Hr] 1 patch TRANSDERM DAILY 10/07/21 Rosuvastatin Calcium 15 mg PO DAILY 10/07/21 Acetaminophen [Tylenol Extra Strength] 1,000 mg PO BID PRN 12/09/21 oxyCODONE-APAP 10-325MG [Percocet 10-325 mg] 10 mg PO Q12HR 12/10/21 Controlled Substance Measures - Controlled Substance Measures Is patient prescribed a controlled substance at discharge?: No
== END ==
LOC: PNWHC3 08:33
PROVIDERS: ATTEND Specialist
DX: M47.815 Spondylosis without myelopathy or radiculopathy, thoracolumbar region (principal); M51.35 Other intervertebral disc degeneration, thoracolumbar region; G89.29 Other chronic pain; Z87.891 Personal history of nicotine dependence; Z88.5 Allergy status to narcotic agent; Z88.1 Allergy status to other antibiotic agents
CPT/HCPCS: 99211

== ENCOUNTER 2022-02-09 08:18 | Day surgery (SDC) | payer MEDICARE ==
[2022-02-05 15:31] VITALS: BMI 22.6
[2022-02-09 08:59] VITALS: TEMP 97.4
[2022-02-09] MEDS ORDERED: LACTATED RINGERS 1,000 ML IV ONE (09:01)
[2022-02-09] MEDS ORDERED: IOPAMIDOL M200 10 ML VIAL ONE (09:18)
[2022-02-09] MEDS ORDERED: MIDAZOLAM 2 MG/2 ML VIAL ONE (09:18)
[2022-02-09] MEDS ORDERED: methylPREDNISolone ACETATE 40 MG/ML 1 ML VIAL ONE (09:18)
--- NOTE | 2022-02-09 09:32 | P.PCN ---
Date of Procedure: 02/09/22 Procedure(s) Performed: PREOPERATIVE DIAGNOSIS: 1- thoracic Degenerative Disc Diseases 2-thoracic radiculopathy POSTOPERATIVE DIAGNOSIS: Same as preop diagnosis. PROCEDURE 1.Thoracic epidural steroid injection under fluoroscopic guidance at the T8-9 level. (Fluoroscopy imaging was available in radiology department) 2. thoracic epidurogram. ANESTHESIA: moderate sedation with intravenous Versed 1 mg . Sedation start time : 0 921 Sedation end time : 11 16 EBL: Minimal PROCEDURE INDICATION: The patient with low back pain and radiculitis symptoms unresponsive to conservative treatment. Fluoroscopy was used to optimize visualization of the needle placement and to maximize safety. PROCEDURE DESCRIPTION / TECHNIQUE: The patient was seen and identified in the preoperative area. Risks, benefits, complications including but not limited to infections ,bleeding ,allergic reaction to the medications ,nerve damage and not complete pain releife , and alternatives were discussed with the patient. The patient agreed to proceed with the procedure and signed the consent. IV was started, and vital signs were stable. Patient was taken to the OR and time out was completed. The patient was placed in the prone position on procedure table . The thoracic area was prepped and draped in the usual sterile fashion.ere closely monitored during the procedure. Conscious sedation was used during the procedure to decrease patients anxiety. Vital signs was monitered during the entire procedure. Using anterior-posterior fluoroscopy, the T8-9 interlaminar space was identified and the skin over this site was marked and then infiltrated with 1% lidocaine subcutaneously. Subsequently, a 20-gauge Tuohy epidural needle was inserted and advanced toward the epidural space using the ``Loss of resistance technique and guided by AP and lateral fluoroscopy. The correct needle position in the epidural space was verified with the injection of 2 mL of the water soluble contrast dye Isovue 200 contrast and observing an excellent epidurogram with the epidural spread of the dye, after negative aspiration for blood and CSF and in the absence of paresthesias. Again after negative aspiration, a 4 ml mixture containing 40 mg of Depo-medrol ( Preservetive Free ), and 2 ml of preservative free Normal Saline, and 2 ml of preservative free lidocaine 1% solution was injected and a washout of epidurogram was seen. Needle was withdrawn intact, skin was cleansed, and bandages were applied. COMPLICATIONS: None DISPOSITION / PLANS: The patient was placed in a supine position and transferred to the recovery area in a stable condition for observation. There was no evidence of lower extremity motor or sensory deficit after the procedure. Patient was discharged from the recovery room after meeting discharge criteria. Home discharge instructions were given to the patient by the staff. The patient was reexamined prior to discharge. The patient will schedule a follow up in the clinic in 2-4 weeks.
[2022-02-09] MEDS ORDERED: IV FLUID CONTINUATION 850 ML IV ONE (09:33)
--- NOTE | 2022-02-09 09:37 | FL ---
Intraoperative/procedural fluoroscopic services were provided for thoracic spinal epidural air at [facility]. Total fluoroscopy time is 3 seconds with a total of 1 submitted image to PACS. Please see the operative note for further details.
[2022-02-09 09:38] VITALS: PULSE 67; RESP 20
[2022-02-09 10:01] VITALS: BP 117/75
== END 2022-02-09 10:04 | disposition home or self-care (01) ==
LOC: ORPAIN 08:18
PROVIDERS: ATTEND Specialist
DX: M51.14 Intervertebral disc disorders with radiculopathy, thoracic region (principal); Z91.048 Other nonmedicinal substance allergy status
CPT/HCPCS: 62321; J2250; J1030; Q9966

== ENCOUNTER → 2022-03-03 | Outpatient (CLI) | payer MEDICARE ==
[2022-03-03 08:56] VITALS: BP 133/75; PULSE 67; RESP 18; TEMP 97.7
--- NOTE | 2022-03-03 14:32 | P.PAINPG ---
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 Pt states he experienced 70% x 2 wks s/p procedure. Pain level is provoked at 10 /10 in inte nsity, constant, localized in the thoracic spine, sharp/ throbbing in character w shooting towards the flanks. Pain is provoked by standing from a laying position. Pain is alleviated with PT x 8 wks in 2019, home exercise as tolerated, heat, medications, hot baths, use of TENS unit, injections, . Interventional pain procedures completed include BENSON T8-T9 x2 Patient is currently on Percocet, Tylenol Patient denies any side effects of the medication(s), denies excessive drowsiness or sleepiness, denies suicidal ideation and reports that the current pain medication is helping to control the pain and improve activities of daily living. Patient denies any motor or sensory deficits. Patient denies any fever or night sweats, denies any change in the bowel movements or urination. Physical Examination: -Constitutional: Cooperative. Not in acute distress . - Neurologic: Cranial nerve II to XII intact. No focal neurological deficits. - Psychatric: Alert & oriented x 3. Matching mood & appropriate affect. Judgment and insight intact. - Musculoskeletal: Cervical spine: Muscle bulk/ tone/ strength in the bilateral upper extremities normal Vertebral body tenderness to palpation over Spurling test positive Distraction test positive Facet loading test positive Thoracic spine Muscle bulk / tone/ strength in the bilateral paraspinal muscles normal Vertebral body tender to palpation over T8 Facet loading test positive Lumbar spine: Motor bulk/ tone/ strength lower extremities , thigh and legs : 5/5 Deep tendon reflexes : Normal Knee Jerk. Normal Ankle Jerk . Vertebral body tenderness to palpation over Lumbar Facet Loading Test positive Straight Leg Raise: positive at 30 degrees right side/ left side Gaenslen's Test positive Sacral spine : Severe tenderness over the Sacroiliac joint: right side / left side Range of motion: Flexion of the lumbar spine <60 degrees Range of motion: Extension of the lumbar spine <20 degrees Gaenslen's Test positive Leisa test: positive right side / left side Thigh Thrust Test Sacral Thrust Test Assessment and plan: Chronic mid back pain secondary to thoracic DDD, spondylosis with facet arthropathy without myelopathy Recommendation of BENSON T8-T9 #3. May need a series of injections, up to 3 within a 6 mo period, for optimal pain relief. Risks, benefits of procedure discussed and pt verbalized understanding. Denies anticoagulant use or medical history of diabetes. All patient questions answered I have spent less than 30 minutes on patient care today. Dr Lay was available by phone for the evaluation of this patient. The time was used to review the medical records including relevant urine studies and Prescription history (MAPs), review of the available imaging, evaluation and examination of the patient, coordination of care with the medical staff and if applicable referring physicians, as well as creation of the medical record - Pain Location Bilateral Medial Back Non-Pharmacological Interventions: Heat, Home Exercise, Massage, Physical Therapy, Stretching, TENS Unit Pharmacological Interventions: Epidural, PRN Medication, Scheduled Medication PQRS Narrative: Smoking Status Former smoker Hx Alcohol Use (MH) No Home Medications: Ambulatory Orders amLODIPine BESYLATE [Norvasc] 5 mg PO QAM 04/28/17 Multivitamins, Thera [Multivitamin (formulary)] 1 tab PO DAILY 08/17/17 Ferrous Sulfate [Iron (65 MG Elemental)] 325 mg PO DAILY 09/07/17 Isosorbide Mononitrate [Isosorbide Mononitrate ER] 30 mg PO QAM 09/07/17 Memantine [Namenda] 10 mg PO BID 01/11/19 Cyanocobalamin [Vitamin B-12] 1,000 mcg PO DAILY #30 tablet 01/12/19 Rivastigmine [Rivastigmine 13.3MG/24Hr] 1 patch TRANSDERM DAILY 10/07/21 Rosuvastatin Calcium 20 mg PO DAILY 10/07/21 Acetaminophen [Tylenol Extra Strength] 1,000 mg PO BID PRN 12/09/21 oxyCODONE-APAP 10-325MG [Percocet 10-325 mg] 10 mg PO Q12HR 12/10/21 Controlled Substance Measures - Controlled Substance Measures Is patient prescribed a controlled substance at discharge?: No
== END ==
LOC: PNWHC3 08:29
PROVIDERS: ATTEND Specialist
DX: M47.814 Spondylosis without myelopathy or radiculopathy, thoracic region (principal); M51.34 Other intervertebral disc degeneration, thoracic region; Z87.891 Personal history of nicotine dependence; Z88.8 Allergy status to other drugs, medicaments and biological substances; Z88.5 Allergy status to narcotic agent
CPT/HCPCS: 99211

== ENCOUNTER → 2022-05-03 | Outpatient (CLI) | payer MEDICARE ==
[2022-05-03 10:32] VITALS: BP 147/87; PULSE 76; RESP 18; TEMP 98.3
--- NOTE | 2022-05-03 14:18 | P.PAINPG ---
PQRS Measure Charge Sheet Comment: A 76 yr old male w at side with a history of severe and chronic LBP secondary to lumbar DDD and spondylosis with facet arthropathy without myelopathy presents today for evaluation s/p BENSON T8-T9. Pt states he experienced 70 % pain relief x 3 wks s/p procedure. Pain level is provoked at 7 /10 in intensity, constant, localized in the lumbar spine, sore in character w/o shooting pain. Pain is provoked by bending. Pain is alleviated with medications, injections, PT years ago, use of a TENS unit at home, daily home stretching regimen, massage at home by his , repositioning and rest. Interventional pain procedures completed include BENSON T8-T9 x3 (Since Nov 2021) Patient is currently on Percocet, Tylenol Patient denies any side effects of the medication(s), denies excessive drowsiness or sleepiness, denies suicidal ideation and reports that the current pain medication is helping to control the pain and improve activities of daily living. Patient denies any motor or sensory deficits. Patient denies any fever or night sweats, denies any change in the bowel movements or urination. Physical Examination: -Constitutional: Cooperative. Not in acute distress . - Neurologic: Cranial nerve II to XII intact. No focal neurological deficits. - Psychatric: Alert & oriented x 3. Matching mood & appropriate affect. Judgment and insight intact. - Musculoskeletal: Cervical spine: Muscle bulk/ tone/ strength in the bilateral upper extremities normal Vertebral body tenderness to palpation over Spurling test positive Distraction test positive Facet loading test positive TTP Thoracic spine Muscle bulk / tone/ strength in the bilateral paraspinal muscles normal Vertebral body tender to palpation over T8 Facet loading test positive TTP Lumbar spine: Motor bulk/ tone/ strength lower extremities , thigh and legs : 5/5 Deep tendon reflexes : Normal Knee Jerk. Normal Ankle Jerk . Vertebral body tenderness to palpation over Lumbar Facet Loading Test positive Straight Leg Raise: positive at 30 degrees right side/ left side Gaenslen's Test positive Sacral spine : Severe tenderness over the Sacroiliac joint: right side / left side Range of motion: Flexion of the lumbar spine <60 degrees Range of motion: Extension of the lumbar spine <20 degrees Gaenslen's Test positive right side / left side Leisa test: positive right side / left side Thigh Thrust Test positive right side / left side Sacral Thrust Test positive right side / left side Assessment and plan: Chronic LBP secondary to lumbar DDD, spondylosis with facet arthropathy without myelopathy Recommendation of BENSON T8-T9 #4. Pt interested in having his 4th within a 12 mo period. States if this injection is ineffective, will consider IPG for pain relief. Is not interested in orthopedic surgical treatment options at this time. Risks, benefits of procedure discussed and pt verbalized understanding. Admits to anticoagulant use or medical history of diabetes. Protocol for discontinuation/ continuation of medications portia procedure discussed. All questions answered. I have spent less than 30 minutes on patient care today. Dr Lay was available by phone for the evaluation of this patient. The time was used to review the medical records including relevant urine studies and Prescription history (MAPs), review of the available imaging, evaluation and examination of the patient, coordination of care with the medical staff and if applicable referring physicians, as well as creation of the medical record PQRS Narrative: Smoking Status Former smoker Hx Alcohol Use (MH) No Home Medications: Ambulatory Orders amLODIPine BESYLATE [Norvasc] 5 mg PO QAM 04/28/17 Multivitamins, Thera [Multivitamin (formulary)] 1 tab PO DAILY 08/17/17 Ferrous Sulfate [Iron (65 MG Elemental)] 325 mg PO DAILY 09/07/17 Isosorbide Mononitrate [Isosorbide Mononitrate ER] 30 mg PO QAM 09/07/17 Memantine [Namenda] 10 mg PO BID 01/11/19 Cyanocobalamin [Vitamin B-12] 1,000 mcg PO DAILY #30 tablet 01/12/19 Rivastigmine [Rivastigmine 13.3MG/24Hr] 1 patch TRANSDERM DAILY 10/07/21 Rosuvastatin Calcium 20 mg PO HS 10/07/21 Acetaminophen [Tylenol Extra Strength] 1,000 mg PO BID PRN 12/09/21 oxyCODONE-APAP 10-325MG [Percocet 10-325 mg] 10 mg PO Q12HR PRN 12/10/21 Controlled Substance Measures - Controlled Substance Measures Is patient prescribed a controlled substance at discharge?: No
== END ==
LOC: PNWHC3 09:46
PROVIDERS: ATTEND Specialist
DX: M51.36 Other intervertebral disc degeneration, lumbar region (principal); M47.816 Spondylosis without myelopathy or radiculopathy, lumbar region; Z87.891 Personal history of nicotine dependence; Z88.5 Allergy status to narcotic agent
CPT/HCPCS: 99211

== ENCOUNTER 2022-06-08 11:41 | Day surgery (SDC) | payer MEDICARE ==
[2022-06-04 10:51] VITALS: BMI 21.4
[2022-06-08] MEDS ORDERED: LIDOCAINE 1% (10MG/ML) FOR IV START INTRADERMA PRN (11:58)
[2022-06-08] MEDS ORDERED: LACTATED RINGERS 1,000 ML IV SCH (11:58)
[2022-06-08 12:21] VITALS: TEMP 98
[2022-06-08] MEDS ORDERED: IOPAMIDOL M200 10 ML VIAL ONE (12:41)
[2022-06-08] MEDS ORDERED: methylPREDNISolone ACETATE 40 MG/ML 1 ML VIAL ONE (12:41)
[2022-06-08] MEDS ORDERED: MIDAZOLAM 2 MG/2 ML VIAL ONE (12:41)
--- NOTE | 2022-06-08 13:00 | P.PCN ---
Date of Procedure: 06/08/22 Procedure(s) Performed: PREOPERATIVE DIAGNOSIS: 1- Thoracic Degenerative Disc Diseases 2-Thoracic radiculopathy POSTOPERATIVE DIAGNOSIS: Same as preop diagnosis. PROCEDURE 1.Thoracic epidural steroid injection under fluoroscopic guidance at the T8-9 level. (Fluoroscopy imaging was available in radiology department) 2. Thoracic epidurogram. ANESTHESIA: moderate sedation with intravenous Versed 1 mg . Sedation start time : 12:49 Sedation end time : 12:58 EBL: Minimal PROCEDURE INDICATION: The patient with low back pain and radiculitis symptoms unresponsive to conservative treatment. Fluoroscopy was used to optimize visualization of the needle placement and to maximize safety. PROCEDURE DESCRIPTION / TECHNIQUE: The patient was seen and identified in the preoperative area. Risks, benefits, complications including but not limited to infections ,bleeding ,allergic reaction to the medications ,nerve damage and not complete pain releife , and alternatives were discussed with the patient. The patient agreed to proceed with the procedure and signed the consent. IV was started, and vital signs were stable. Patient was taken to the OR and time out was completed. The patient was placed in the prone position on procedure table . The thoracic area was prepped and draped in the usual sterile fashion.ere closely monitored during the procedure. Conscious sedation was used during the procedure to decrease patients anxiety. Vital signs was monitered during the entire procedure. Using anterior-posterior fluoroscopy, the T8-9 interlaminar space was identified and the skin over this site was marked and then infiltrated with 1% lidocaine subcutaneously. Subsequently, a 20-gauge Tuohy epidural needle was inserted and advanced toward the epidural space using the ``Loss of resistance technique and guided by AP and lateral fluoroscopy. The correct needle position in the epidural space was verified with the injection of 2 mL of the water soluble contrast dye Isovue 200 contrast and observing an excellent epidurogram with the epidural spread of the dye, after negative aspiration for blood and CSF and in the absence of paresthesias. Again after negative aspiration, a 4 ml mixture containing 40 mg of Depo-medrol ( Preservetive Free ), and 2 ml of preservative free Normal Saline, and 2 ml of preservative free lidocaine 1% solution was injected and a washout of epidurogram was seen. Needle was with drawn intact, skin was cleansed, and bandages were applied. COMPLICATIONS: None DISPOSITION / PLANS: The patient was placed in a supine position and transferred to the recovery area in a stable condition for observation. There was no evidence of lower extremity motor or sensory deficit after the procedure. Patient was discharged from the recovery room after meeting discharge criteria. Home discharge instructions were given to the patient by the staff. The patient was reexamined prior to discharge. The patient will schedule a follow up in the clinic in 2-4 weeks.
[2022-06-08] MEDS ORDERED: IV FLUID CONTINUATION 1,000 ML IV ONE (13:03)
[2022-06-08 13:05] VITALS: RESP 16
[2022-06-08 13:18] VITALS: BP 112/66; PULSE 66
--- NOTE | 2022-06-08 13:53 | FL ---
EXAMINATION TYPE: FL guided pain mgmt statistic DATE OF EXAM: 06/08/2022 CLINICAL HISTORY: Mid back pain. TECHNIQUE: Fluoroscopy. COMPARISON: None. FINDINGS: Fluoroscopic guidance was provided during pain relief procedure performed by Dr. Lay . A total of 7.1 seconds of fluoroscopic time was utilized during the procedure and 1 spot images ar e acquired. Single image acquired shows needle localization in the thoracic spine. IMPRESSION: As Above.
== END 2022-06-08 13:36 | disposition home or self-care (01) ==
LOC: ORPAIN 11:41
PROVIDERS: ATTEND Anesthesiology
DX: M51.14 Intervertebral disc disorders with radiculopathy, thoracic region (principal); Z88.8 Allergy status to other drugs, medicaments and biological substances
CPT/HCPCS: 62321; J2250; J1030; Q9966

== ENCOUNTER → 2022-06-30 | Outpatient (CLI) | payer MEDICARE ==
[2022-06-30 12:18] VITALS: BP 128/79; PULSE 70; RESP 18; TEMP 98.4
--- NOTE | 2022-06-30 14:31 | P.PAINPG ---
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 Pt states he experienced 80 % pain relief x 3 wks s/p procedure. Pain level is provoked at 5 /10 in intensity, constant, localized in the center of the thoracic spine, achy in character w/o shooting pain. Pain is provoked by laying in 1 position for periods of 1 hr or more. Pain is alleviated with PT years ago which didn't help, heat, ice, medications, home massages, use of a cane for ambulatory assistance, repositioning and rest. Interventional pain procedures completed include BENSON T8-9 Patient is currently on Tyl Patient denies any side effects of the medication(s), denies excessive drowsiness or sleepiness, denies suicidal ideation and reports that the current pain medication is helping to control the pain and improve activities of daily living. Patient denies any motor or sensory deficits. Patient denies any fever or night sweats, denies any change in the bowel movements or urination. Physical Examination: -Constitutional: Cooperative. Not in acute distress . - Neurologic: Cranial nerve II to XII intact. No focal neurological deficits. - Psychatric: Alert & oriented x 3. Matching mood & appropriate affect. Judgment and insight intact. - Musculoskeletal: Cervical spine: Muscle bulk/ tone/ strength in the bilateral upper extremities normal Vertebral body tenderness to palpation over Spurling test positive Distraction test positive Facet loading test positive TTP Thoracic spine Muscle bulk / tone/ strength in the bilateral paraspinal muscles normal Vertebral body tender to palpation over Facet loading test positive TTP Lumbar spine: Motor bulk/ tone/ strength lower extremities , thigh and legs : 5/5 Deep tendon reflexes : Normal Knee Jerk. Normal Ankle Jerk . Vertebral body tenderness to palpation over Lumbar Facet Loading Test positive Straight Leg Raise: positive at 30 degrees right side/ left side Gaenslen's Test positive Sacral spine : Severe tenderness over the Sacroiliac joint: right side / left side Range of motion: Flexion of the lumbar spine <60 degrees Range of motion: Extension of the lumbar spine <20 degrees Gaenslen's Test positive right side / left side Leisa test: positive right side / left side Thigh Thrust Test positive right side / left side Sacral Thrust Test positive right side / left side Assessment and plan: Chronic mid back pain secondary to thoracic DDD, spondylosis with facet arthropathy without myelopathy Pt tolerated procedure well and will manage residual pain w physician guided exercise regimen discussed. Information provided. All questions answered. I have spent less than 30 minutes on patient care today. Dr Lay was available by phone for the evaluation of this patient. The time was used to review the medical records including relevant urine studies and Prescription history (MAPs), review of the available imaging, evaluation and examination of the patient, coordination of care with the medical staff and if applicable referring physicians, as well as creation of the medical record PQRS Narrative: Smoking Status Former smoker Hx Alcohol Use (MH) No Home Medications: Ambulatory Orders amLODIPine BESYLATE [Norvasc] 5 mg PO QAM 04/28/17 Multivitamins, Thera [Multivitamin (formulary)] 1 tab PO DAILY 08/17/17 Ferrous Sulfate [Iron (65 MG Elemental)] 325 mg PO DAILY 09/07/17 Isosorbide Mononitrate [Isosorbide Mononitrate ER] 30 mg PO QAM 09/07/17 Memantine [Namenda] 10 mg PO BID 01/11/19 Cyanocobalamin [Vitamin B-12] 1,000 mcg PO DAILY #30 tablet 01/12/19 Rivastigmine [Rivastigmine 13.3MG/24Hr] 1 patch TRANSDERM DAILY 10/07/21 Rosuvastatin Calcium 20 mg PO HS 10/07/21 Acetaminophen [Tylenol Extra Strength] 1,000 mg PO BID PRN 12/09/21 oxyCODONE-APAP 10-325MG [Percocet 10-325 mg] 10 mg PO BID PRN 12/10/21 Controlled Substance Measures - Controlled Substance Measures Is patient prescribed a controlled substance at discharge?: No
== END ==
LOC: PNWHC3 10:05
PROVIDERS: ATTEND Specialist
DX: M51.34 Other intervertebral disc degeneration, thoracic region (principal); Z87.891 Personal history of nicotine dependence; Z88.5 Allergy status to narcotic agent
CPT/HCPCS: 99211

== ENCOUNTER → 2022-07-29 | Outpatient (CLI) | payer MEDICARE ==
[2022-07-29 15:54] LABS: Blood Urea Nitrogen 11.7 mg/dL (9.0-27.0); Chol/HDL Ratio 4.67 Ratio; Glucose 114 mg/dL (70-110); LDL Cholesterol,Calculated 119.3 mg/dL (0.0-131.0)
[2022-07-29 15:55] LABS: ALT 33 U/L (10-49); AST 30 U/L (14-35); Albumin 5.2 d/dL (3.8-4.9); Albumin/Globulin Ratio 2.08 Ratio (1.60-3.17); Alkaline Phosphatase 103 U/L (41-126); Calcium 10.1 mg/dL (8.7-10.3); Carbon Dioxide 27.7 mmol/L (21.6-31.8); Chloride 105 mmol/L (96-109); Globulin 2.5 d/dL (1.6-3.3); Potassium 4.1 mmol/L (3.5-5.5); Sodium 144 mmol/L (135-145); Total Bilirubin 0.6 mg/dL (0.3-1.2); Total Protein 7.7 d/dL (6.2-8.2)
== END | disposition home or self-care (01) ==
LOC: LABWHC1 10:48
PROVIDERS: ATTEND Internal Medicine Interventional Cardiology
DX: E78.2 Mixed hyperlipidemia (principal)
CPT/HCPCS: 36415; 80053; 80061

== ENCOUNTER → 2022-12-08 | Outpatient (CLI) | payer MEDICARE ==
[2022-12-08 20:28] LABS: ALT 43 U/L (10-49); AST 36 U/L (14-35); Chol/HDL Ratio 3.82 Ratio; LDL Cholesterol,Calculated 77.4 mg/dL (0.0-131.0)
== END | disposition home or self-care (01) ==
LOC: LABWHC1 12:21
PROVIDERS: ATTEND Internal Medicine Interventional Cardiology
DX: E78.2 Mixed hyperlipidemia (principal)
CPT/HCPCS: 36415; 80061; 84450; 84460

== ENCOUNTER → 2023-03-29 | Outpatient (CLI) | payer MEDICARE ==
--- NOTE | 2023-03-29 09:29 | US ---
EXAMINATION TYPE: US liver DATE OF EXAM: 03/29/2023 COMPARISON: NONE CLINICAL INDICATION: Male, 77 years old with history of R74.01 ELEVATED TRANSAMINASE LEVEL; Hx Obtain ed from Spouse - Patient has dimentia; Intermittent constipation and diarrhea last few weeks. Denies any other signs or symptoms TECHNIQUE: Multiple sonographic images of the right upper quadrant are obtained. FINDINGS: EXAM MEASUREMENTS: Liver Length: 17.0 cm Gallbladder Wall: NA cm CBD: 0.2 cm Right Kidney: 11.6 x 5.5 x 4.6 cm [employer] NOTES:Patients spouse states patient should still have Gallbladder; No Gallbladder identi fied Pancreas: wnl Liver: wnl Gallbladder: Surgically absent Evidence for sonographic Candelario's sign: No CBD: wnl Right Kidney: wnl IMPRESSION: wnl
== END | disposition home or self-care (01) ==
LOC: RADUSWWP 08:48
PROVIDERS: ATTEND Family Medicine
DX: R74.01 Elevation of levels of liver transaminase levels (principal); F03.90 Unspecified dementia, unspecified severity, without behavioral disturbance, psychotic disturbance, mood disturbance, and anxiety; K59.09 Other constipation; Z90.49 Acquired absence of other specified parts of digestive tract
CPT/HCPCS: 76705

== ENCOUNTER → 2023-08-02 | Outpatient (CLI) | payer MEDICARE ==
[2023-08-02 18:58] LABS: ALT 45 U/L (10-49); AST 40 U/L (14-35); Albumin/Globulin Ratio 2.17 Ratio (1.60-3.17); Alkaline Phosphatase 91 U/L (41-126); BUN/Creat Ratio 9.22 Ratio (12.00-20.00); Blood Urea Nitrogen 8.3 mg/dL (9.0-27.0); Calcium 9.6 mg/dL (8.7-10.3); Carbon Dioxide 27.3 mmol/L (21.6-31.8); Chloride 105 mmol/L (96-109); Globulin 2.3 g/dL (1.6-3.3); Glucose 108 mg/dL (70-110); LDL Cholesterol,Calculated 73.1 mg/dL (0.0-131.0); Potassium 4.3 mmol/L (3.5-5.5); Sodium 145 mmol/L (135-145); Total Bilirubin 0.3 mg/dL (0.3-1.2); Total Protein 7.3 g/dL (6.2-8.2); VLDL Calculation 18.96 mg/dL (5.00-40.00)
== END | disposition home or self-care (01) ==
LOC: LABWHC1 13:14
PROVIDERS: ATTEND Internal Medicine Interventional Cardiology
DX: E78.2 Mixed hyperlipidemia (principal)
CPT/HCPCS: 36415; 80053; 80061

== ENCOUNTER → 2024-09-10 | Outpatient (CLI) | payer MEDICARE ==
[2024-09-10 15:42] LABS: ALT 36 U/L (10-49); AST 42 U/L (14-35); Albumin 4.7 g/dL (3.8-4.9); Albumin/Globulin Ratio 1.81 Ratio (1.60-3.17); Alkaline Phosphatase 110 U/L (41-126); Anion Gap 10.80 mmol/L (4.00-12.00); BUN/Creat Ratio 11.70 Ratio (12.00-20.00); Blood Urea Nitrogen 11.7 mg/dL (9.0-27.0); Calcium 9.2 mg/dL (8.7-10.3); Carbon Dioxide 26.2 mmol/L (21.6-31.8); Chloride 103 mmol/L (96-109); Cholesterol 136.00 mg/dL (0.00-200.00); Globulin 2.6 g/dL (1.6-3.3); Glucose 111 mg/dL (70-110); HDL Cholesterol 33.80 mg/dL (40.00-60.00); LDL Cholesterol,Calculated 78.2 mg/dL (0.0-131.0); Potassium 4.2 mmol/L (3.5-5.5); Sodium 140 mmol/L (135-145); Total Protein 7.3 g/dL (6.2-8.2); Triglycerides 120.00 mg/dL (0.00-149.00); VLDL Calculation 24.00 mg/dL (5.00-40.00)
== END | disposition home or self-care (01) ==
LOC: LABWHC1 08:48
PROVIDERS: ATTEND Nurse Practitioner Adult Health
DX: I10 Essential (primary) hypertension (principal); E78.2 Mixed hyperlipidemia
CPT/HCPCS: 36415; 80053; 80061

== ENCOUNTER → 2024-09-12 | Outpatient (CLI) | payer MEDICARE ==
[2024-09-12 10:50] LABS: INR 1.0 (<1.2); Prothrombin Time 10.8 sec (10.0-12.5)
[2024-09-12 10:51] LABS: Partial Thromboplastin Time 23.0 sec (22.0-30.0)
[2024-09-12 17:04] LABS: Basophils # (M) 0 X 10*3/uL (0.00-0.10); Eosinophils # (M) 0.71 X 10*3/uL (0.04-0.35); HCT 44.8 % (39.6-50.0); HGB 14.4 g/dL (13.0-17.0); Lymphocytes # (M) 26.48 X 10*3/uL (0.90-5.00); MCH 31.1 pg (27.0-32.0); MCHC 32.1 g/dL (32.0-37.0); MCV 96.8 FL (80.0-97.0); Monocytes # (M) 1.41 X 10*3/uL (0.20-1.00); NRBC Per 100 WBC 0 X 10*3/uL (0.00-0.01); Neutrophils # (M) 6.71 X 10*3/uL (1.80-7.70); Neutrophils % (M) 19 %; Platelet Count 198 X 10*3/uL (140-440); RBC 4.63 X 10*6/uL (4.40-5.60); RDW 13.6 % (11.5-14.5); Smudge Cells Present (Absent); WBC 35.31 X 10*3/uL (4.50-10.00)
== END | disposition home or self-care (01) ==
LOC: LABWHC1 09:42
DX: T14.8XXA Other injury of unspecified body region, initial encounter (principal)
CPT/HCPCS: 36415; 85025; 85610; 85730